=== PATIENT | male | born 1945 | race Caucasian/White ===

== ENCOUNTER 2016-06-22 19:54 | Emergency (ER) | payer MEDICARE, OTHER ==
[~2016-06-22] VITALS: Ht 172.7 cm; Wt 96.6 kg
[~2016-06-22 19:54] MED LIST: ACET325C PO; ALBU2.5V38 IH; BISA10SU8 RC; CRAN405C PO; DEXT1CAP3 PO; ESCI10TA PO; FINA5TAB11 PO; FURO-152 PO; LEVE750T10 PO; LEVO500T15 PO; MAGN400O4 PO; MELA5TAB PO; MEMA10TA PO; MULT-70 PO; OXCA600T PO; POLY255P2 PO; TAMS-3 PO
--- NOTE | 2016-06-22 20:05 | NUR ---
Arrived via [facility] transport from [facility]. Patient brought in for 1 episode of coffee ground emesis. Patient is in bed, no behavioral signs of pain noted. No cardio/respiratory distress noted. Will continue to monitor.
[2016-06-22] MEDS ORDERED: AMIN30LI27 PO (20:09)
[2016-06-22] MEDS ORDERED: FERR-58 PO (20:09)
[2016-06-22] MEDS ORDERED: IV NORMAL SALINE 1000 ML BAG IV ONE (20:15)
[2016-06-22] MEDS ORDERED: ONDANSETRON 4 MG/2 ML VIAL IV ONE (20:15)
[2016-06-22] MEDS ORDERED: PANTOPRAZOLE SODIUM IV 80 MG in IV DEXTROSE 5% 100 ML IV ONE (20:15)
[2016-06-22 20:36] LABS: *OCCULT BLOOD STOOL NEGATIVE (NEGATIVE)
[2016-06-22] MEDS ORDERED: ONDANSETRON 4 MG/2 ML VIAL ONE (20:37)
[2016-06-22] MEDS ORDERED: PANTOPRAZOLE SODIUM 40 MG VIAL ONE (20:38)
[2016-06-22 20:44] LABS: BASOPHILS % (AUTO) 0.5 % (0.0-2.0); EOSINOPHILS # (AUTO) 0.4 K/uL (0.0-0.7); EOSINOPHILS % (AUTO) 4.4 % (0.0-7.0); HEMATOCRIT 37.3 % (40-50); HEMOGLOBIN 12.4 G/DL (14.0-18.0); LYMPHOCYTES # (AUTO) 1.3 K/uL (20.0-40.0); LYMPHOCYTES % (AUTO) 15.4 % (20.5-51.5); MEAN CORPUSCULAR HEMOGLOBIN 25.8 UUG (27.0-31.0); MEAN CORPUSCULAR HGB CONC 33 g/dL (32.0-37.0); MEAN CORPUSCULAR VOLUME 77.5 FL (82.0-92.0); MONOCYTES # (AUTO) 0.6 K/uL (2.0-10.0); MONOCYTES % (AUTO) 7.4 % (0.0-11.0); NEUTROPHILS % (AUTO) 72.3 % (38.5-71.5); PLATELET COUNT (AUTO) 380 K/UL (150-450); RED BLOOD CELL COUNT(AUTO) 4.82 MIL/UL (4.7-6.1); RED CELL DISTRIBUTION WIDTH 30.8 % (11.5-14.5); WHITE BLOOD COUNT (AUTO) 8.3 K/UL (4.0-11.2)
[2016-06-22 20:52] LABS: IRON, SERUM 60 ug/dL (50-175)
[2016-06-22 21:01] LABS: ANISOCYTOSIS 3+; CALCIUM 8.8 mg/dL (8.5-10.1); CARBON DIOXIDE 28 mmol/L (21-32); CHLORIDE 104 mmol/L (98-107); GFR 74 mL/min (>60); GLUCOSE 110 mg/dL (74-106); POTASSIUM 4.2 mmol/L (3.5-5.1); SODIUM SERUM 140 mmol/L (136-145); UREA NITROGEN, BLOOD 18 mg/dL (7-18)
[2016-06-22 21:02] LABS: OVALOCYTES 2+; TEAR DROP CELLS FEW
[2016-06-22 21:07] LABS: ALANINE AMINOTRANSFERASE 22 U/L (16-63); ALBUMIN 3.5 g/dL (3.4-5.0); ALKALINE PHOSPHATASE 120 U/L (50-136); ASPARTATE AMINOTRANSFERASE 12 U/L (15-37); BILIRUBIN,DIRECT < 0.1 mg/dL (0.0-0.2); BILIRUBIN,TOTAL 0.2 mg/dL (0.2-1.0); LIPASE 110 U/L (73-393); TOTAL PROTEIN, SERUM 6.6 g/dL (6.4-8.2)
[2016-06-22 21:08] LABS: AMMONIA 16 umol/L (11-32)
[2016-06-22 21:50] LABS: *BILIRUBIN,URIN NEGATIVE (NEGATIVE); *BLOOD, URINE 2+ (NEGATIVE); *CLARITY,URINE CLOUDY (CLEAR); *COLOR,URINE YELLOW (YELLOW); *KETONES,URINE NEGATIVE (NEGATIVE); *PROTEIN,URINE 2+ (NEGATIVE); *UROBILINOGEN,URINE 0.2 E.U./dl (NORMAL); LEUKOCYTE ESTERASE ,URINE 1+ (NEGATIVE); PH,URINE 6.5 (5.0-8.0); UGLUCOSE NEGATIVE (NEGATIVE)
[2016-06-22 21:51] LABS: NITRITE, URINE POSITIVE (NEGATIVE)
--- NOTE | 2016-06-22 21:53 | NUR ---
[id number],Dr Interiano on phone with Dr Levy. Per Dr Interiano patient is ready to transfer back to SNF. [id number], call placed to [facility]. S ambulance transport eta 30-45 minutes
--- NOTE | 2016-06-22 21:56 | NUR ---
Called Center at [facility] , Report given to Neetu JENNINGS.
[2016-06-22 21:59] LABS: BACTERIA,URINE FEW /HPF (NONE SEEN); MUCUS,URINE FEW /LPF (0-FEW); SQUAMOUS EPITHELIAL CELL,UR NONE SEEN /HPF (NONE SEEN); WBC,URINE 80-100 /HPF (0-3)
--- NOTE | 2016-06-22 22:38 | NUR ---
Patient discharged to snf Center at [facility] in stable conditon. Written and verbal after care instructions given. Patient verbalizes understanding of instructions. All belongings with patient. Transferred via BLS ambulance, chart given to EMT for transport.
[2016-06-22 22:42] VITALS: BP 138/75
== END 2016-06-22 22:43 | disposition home or self-care (01) ==
LOC: ER 19:57
DX: R11.2 Nausea with vomiting, unspecified (principal); G80.9 Cerebral palsy, unspecified; F32.9 Major depressive disorder, single episode, unspecified; I50.9 Heart failure, unspecified
CPT/HCPCS: 36415; 70030-TC; 71010; 83550; 83690; 85025; 85730; 86850; 86900; 86901; 93005; A4663; C9113; J2405; J7030; J7060

== ENCOUNTER 2016-09-04 22:39 | Inpatient (IN) | payer MEDICARE, OTHER ==
[~2016-09-04] VITALS: Ht 177.8 cm; Wt 99.8 kg
[~2016-09-04 22:39] MED LIST changes: +AMIN30LI27 PO; +FERR-58 PO; -LEVO500T15 PO; -MAGN400O4 PO; +MAGN400O6 PO; -MULT-70 PO; +MULT1TAB73 PO
[2016-09-04] MEDS ORDERED: BACL10TA PO (23:12)
[2016-09-04 23:24] LABS: BASOPHILS # (AUTO) 0.1 K/uL (0.0-8.0); BASOPHILS % (AUTO) 0.8 % (0.0-2.0); EOSINOPHILS # (AUTO) 0.1 K/uL (0.0-0.7); EOSINOPHILS % (AUTO) 1.4 % (0.0-7.0); HEMATOCRIT 40.2 % (40-50); HEMOGLOBIN 13.1 G/DL (14.0-18.0); LYMPHOCYTES # (AUTO) 0.6 K/UL (0.8-4.8); LYMPHOCYTES % (AUTO) 6.6 % (20.5-51.5); MEAN CORPUSCULAR HEMOGLOBIN 28.7 UUG (27.0-31.0); MEAN CORPUSCULAR HGB CONC 33 g/dL (32.0-37.0); MEAN CORPUSCULAR VOLUME 87.9 FL (82.0-92.0); MONOCYTES # (AUTO) 0.6 K/UL (0.1-1.30); MONOCYTES % (AUTO) 6.6 % (0.0-11.0); NEUTROPHILS # (AUTO) 8.4 K/UL (1.8-8.9); NEUTROPHILS % (AUTO) 84.6 % (38.5-71.5); PLATELET COUNT (AUTO) 313 K/UL (150-450); RED BLOOD CELL COUNT(AUTO) 4.57 MIL/UL (4.7-6.1); WHITE BLOOD COUNT (AUTO) 9.8 K/UL (4.0-11.2)
[2016-09-04 23:25] LABS: CARBON DIOXIDE 25 mmol/L (21-32); CHLORIDE 101 mmol/L (98-107); GLUCOSE 131 mg/dL (74-106); POTASSIUM 4.2 mmol/L (3.5-5.1); UREA NITROGEN, BLOOD 17 mg/dL (7-18)
--- NOTE | 2016-09-04 23:30 | NUR ---
Pt biba from facility for dark colored emesis. Pt having N/V. Abd non tender upon palpation. Pos BS. Pt hot to touch. Resp even and unlabored. Pt SR on monitor. Lab and xray at bedside.
--- NOTE | 2016-09-04 23:35 | NUR ---
Pt cleansed and changed. Pt cont to feel hot to touch. Rectal temp 101.1. notified.
[2016-09-04 23:37] LABS: ALANINE AMINOTRANSFERASE 23 U/L (16-63); ALKALINE PHOSPHATASE 102 U/L (50-136); ASPARTATE AMINOTRANSFERASE 11 U/L (15-37); BILIRUBIN,DIRECT < 0.1 mg/dL (0.0-0.2); BILIRUBIN,TOTAL 0.1 mg/dL (0.2-1.0); TOTAL PROTEIN, SERUM 6.5 g/dL (6.4-8.2)
[2016-09-05] MEDS ORDERED: ESCI10TA PO (00:06)
[2016-09-05] MEDS ORDERED: IV NORMAL SALINE 1000 ML BAG IV ONE (00:15)
[2016-09-05] MEDS ORDERED: PIPERACILLIN SODIUM/TAZOBACTAM 3.375 G in IV DEXTROSE 5% 50 ML IV ONE (00:15)
[2016-09-05] MEDS ORDERED: GENTAMICIN SULFATE INJ 80 MG in IV DEXTROSE 5% 100 ML IV ONE (00:15)
--- NOTE | 2016-09-05 01:03 | NUR ---
Supra pubic catheter changed by Dr. Soliman. New catheter irrigated and is draining freely to gravity. Fluid bolus infusing freely to gravity. ABT infusion started, will monitor for any adverse reactions. Pt resting in position of comfort for self. Family at bedside.
[2016-09-05] MEDS ORDERED: PIPERACILLIN/TAZOBACTAM/D5W 50 ML IV ONE (01:11)
--- NOTE | 2016-09-05 01:13 | NUR ---
Dr. Soliman speaking with Dr. Duran concerning admission
[2016-09-05] MEDS ORDERED: GENTAMICIN SULFATE 80 MG/2 ML VIAL ONE (01:45)
[2016-09-05 01:59] LABS: *BILIRUBIN,URIN NEGATIVE (NEGATIVE); *BLOOD, URINE 3+ (NEGATIVE); *CLARITY,URINE CLOUDY (CLEAR); *COLOR,URINE YELLOW (YELLOW); *KETONES,URINE NEGATIVE (NEGATIVE); *PROTEIN,URINE 3+ (NEGATIVE); *UROBILINOGEN,URINE 0.2 E.U./dl (NORMAL); LEUKOCYTE ESTERASE ,URINE 2+ (NEGATIVE); NITRITE, URINE NEGATIVE (NEGATIVE); PH,URINE 8.5 (5.0-8.0); UGLUCOSE NEGATIVE (NEGATIVE)
--- NOTE | 2016-09-05 02:00 | NUR ---
Pt to be admitted. Report called to DICK Patel. Preparing to transfer pt to the floor.
[2016-09-05 02:03] LABS: BACTERIA,URINE MODERATE /HPF (NONE SEEN); RBC,URINE TNTC /HPF (0-3); SQUAMOUS EPITHELIAL CELL,UR FEW /HPF (NONE SEEN)
[2016-09-05 02:57] VITALS: BP 147/99
[2016-09-05] MEDS ORDERED: CEFTRIAXONE 1 G VIAL IM SCH (03:15)
[2016-09-05] MEDS: IV NS 1000 ML 1,000 ML IV PRN ×2 (03:31→19:38)
[2016-09-05] MEDS: ACETAMINOPHEN 325 MG TABLET PO PRN (03:31)
[2016-09-05] MEDS ORDERED: ACETAMINOPHEN 325 MG TABLET ONE (03:38)
--- NOTE | 2016-09-05 03:39 | NUR ---
Admitted this 71 y/o male patient via gurney, awake & alert no SOB denies chest pain. Placed on bed comfortably, orientation to room & bed initiated. Initial assessment done, patient is warm to touch w/ Temp 99.8 F orally. Additional 800ml NS bolus (ER order) completed. Tylenol 650 mg po given, cooling measures applied. Fall precaution observed, kept side rails x2 up & secured. Will continue to monitor.
[2016-09-05] MEDS ORDERED: CEFTRIAXONE 1 G VIAL ONE (04:23)
[2016-09-05] MEDS ORDERED: CEFTRIAXONE 1 G VIAL IV SCH (05:00)
--- NOTE | 2016-09-05 06:55 | NUR ---
Afebrile at this time, current temp 98.6 F. Continuos cooling measures applied. No acute resp distress. Will continue to monitor.
--- NOTE | 2016-09-05 07:20 | NUR ---
RECEIVED REPORT FROM PHYSICAL MEDICINE TEACHER NURSE, PATIENT IN BED, AWAKE, NO EVIDENCE OF DISTRESS, BED IN LOW POSITION, SIDE RAILS UP X2.
[2016-09-05] MEDS: Z GUARD REMEDY PASTE 57 GM TUBE TOP SCH ×2 (09:02→20:22)
[2016-09-05] MEDS ORDERED: BISACODYL 10 MG SUPP.RECT RC PRN (09:30)
[2016-09-05] MEDS ORDERED: ALBUTEROL SULFATE 2.5 MG/3 ML NEBU IH PRN (09:30)
[2016-09-05] MEDS ORDERED: Medication Not On Formulary EA (Dextromethorphan Hbr/Quinidine (Nuedexta 20-10 Mg Capsul PO SCH (09:30)
[2016-09-05] MEDS ORDERED: MAGNESIUM HYDROXIDE 30 ML LIQUID UDC PO PRN (09:30)
[2016-09-05] MEDS ORDERED: ACETAMINOPHEN 325 MG TABLET PO PRN (09:30)
[2016-09-05] MEDS: BACLOFEN 10 MG TABLET PO SCH (10:22)
[2016-09-05] MEDS: ESCITALOPRAM OXALATE 10 MG TABLET PO SCH (11:36)
[2016-09-05] MEDS: FINASTERIDE 5 MG TABLET PO SCH (11:36)
[2016-09-05] MEDS: MEMANTINE HCL 10 MG TABLET PO SCH ×2 (11:36→17:41)
[2016-09-05] MEDS: FUROSEMIDE 20 MG TABLET PO SCH ×2 (11:36→17:41)
[2016-09-05] MEDS: LEVETIRACETAM 250 MG TABLET PO SCH ×2 (11:36→20:21)
[2016-09-05] MEDS: OXCARBAZEPINE 300 MG TABLET PO SCH ×2 (11:36→20:21)
[2016-09-05] MEDS: FERROUS SULFATE 325 MG TABEC PO SCH ×3 (11:37→17:41)
[2016-09-05] MEDS: MULTIVITAMINS,THERAPEUTIC TABLET PO SCH (11:37)
[2016-09-05 12:01] VITALS: BP 144/87
[2016-09-05 16:12] VITALS: BP 145/87
[2016-09-05] MEDS ORDERED: Medication Not On Formulary EA (Cranberry Extract (Cranberry) 450 MG) PO SCH (17:00)
[2016-09-05] MEDS: PROTEIN SUPPLEMENT (PROSTAT) 30 ML LIQUID PO SCH (17:41)
--- NOTE | 2016-09-05 19:11 | NUR ---
PATIENT HAS BEEN COOPERATIVE, WITH INTERMITTENT EPISODES OF ANXIETY WHEN HE WAS BEING REPOSITIONED. SUPPORTIVE WORDS AND REINFORCEMENT HELP CALM HIM DOWN. PATIENT HAS A GOOD APPETITE, AND SHOWS NO EVIDENCE OF DISTRESS EXCEPT WHEN REPOSITIONING AND CHANGING. WOUNDS DOCUMENTED IN CHART AND CONSULT FOR WOUND CARE ORDERED. PATIENT IS IN BED, SIDE RAILS UP X2, BED IN LOW POSITION, NO EVIDENCE OF DISTRESS NOTED.
--- NOTE | 2016-09-05 19:40 | NUR ---
Received patient awake, pleasantly confused verbally responsive. No SOB denies chest pain. Wet hospital gown noted. IV line out, patient still holding dripping IV tubing. Sponge bath provided, complete linen change done. Inserted new IV line to his left hand, A20g. IVF maintained. Kept comfortable. Safety & fall precaution observed.
[2016-09-05 20:00] VITALS: BP 130/89
[2016-09-05] MEDS: TAMSULOSIN HCL 0.4 MG CAP.SR.24H PO SCH (20:20)
[2016-09-05] MEDS: MELATONIN 3 MG TABLET PO SCH (20:22)
[2016-09-05] MEDS ORDERED: Medication Not On Formulary EA (Melatonin 5 MG) PO SCH (21:00)
--- NOTE | 2016-09-05 22:00 | NUR ---
Repositioned in bed. Patient tolerated night p.o meds.
--- NOTE | 2016-09-05 23:00 | NUR ---
Sleeping comfortably no signs of distress.
[2016-09-06] MEDS ORDERED: CEFTRIAXONE 1 G VIAL IV SCH (03:15)
[2016-09-06 04:00] VITALS: BP 115/66
--- NOTE | 2016-09-06 05:59 | NUR ---
Total care, very difficult to turn due to heavy weight. Left hand IV infiltrated, & removed. Inserted new heplock to his right forearm, w/ [id number]. IVF maintained.
[2016-09-06] MEDS: CEFTRIAXONE 1 G in IV DEXTROSE 5% 50 ML IV SCH (06:04)
--- NOTE | 2016-09-06 07:15 | NUR ---
RECEIVED REPORT FROM RESEARCH QUALITY ASSURANCE SPECIALIST, PATIENT IN BED, ASLEEP, SIDE RAILS UP X2, BED IN LOW POSITION, BED ALARM SET.
--- NOTE | 2016-09-06 07:15 | NUR ---
For EGD today, kept NPO post midnight. No acute res. distress.
[2016-09-06] MEDS: PROTEIN SUPPLEMENT (PROSTAT) 30 ML LIQUID PO SCH ×2 (08:00→17:18)
[2016-09-06] MEDS: MULTIVITAMINS,THERAPEUTIC TABLET PO SCH (09:00)
[2016-09-06] MEDS: FERROUS SULFATE 325 MG TABEC PO SCH ×3 (09:00→17:18)
[2016-09-06] MEDS: Z GUARD REMEDY PASTE 57 GM TUBE TOP SCH ×2 (09:00→21:00)
[2016-09-06 09:09] LABS: BASOPHILS % (AUTO) 0.6 % (0.0-2.0); EOSINOPHILS # (AUTO) 0.2 K/uL (0.0-0.7); EOSINOPHILS % (AUTO) 5.1 % (0.0-7.0); HEMATOCRIT 36.5 % (40-50); HEMOGLOBIN 12.2 G/DL (14.0-18.0); LYMPHOCYTES # (AUTO) 1.1 K/UL (0.8-4.8); LYMPHOCYTES % (AUTO) 23.1 % (20.5-51.5); MEAN CORPUSCULAR HEMOGLOBIN 29.9 UUG (27.0-31.0); MEAN CORPUSCULAR HGB CONC 34 g/dL (32.0-37.0); MEAN CORPUSCULAR VOLUME 89.1 FL (82.0-92.0); MONOCYTES # (AUTO) 0.7 K/UL (0.1-1.30); MONOCYTES % (AUTO) 15.2 % (0.0-11.0); NEUTROPHILS # (AUTO) 2.8 K/UL (1.8-8.9); PLATELET COUNT (AUTO) 276 K/UL (150-450)
[2016-09-06 09:39] LABS: RED BLOOD CELL COUNT(AUTO) 4.09 MIL/UL (4.7-6.1); WHITE BLOOD COUNT (AUTO) 4.9 K/UL (4.0-11.2)
[2016-09-06 10:08] LABS: BILIRUBIN,TOTAL 0.2 mg/dL (0.2-1.0); CREATININE 0.9 mg/dL (0.6-1.3); MAGNESIUM 2.1 mg/dL (1.8-2.4); TOTAL PROTEIN, SERUM 5.9 g/dL (6.4-8.2)
[2016-09-06] MEDS: LEVETIRACETAM 250 MG TABLET PO SCH ×2 (10:21→20:59)
[2016-09-06] MEDS: MEMANTINE HCL 10 MG TABLET PO SCH ×2 (10:21→17:18)
[2016-09-06] MEDS: OXCARBAZEPINE 300 MG TABLET PO SCH ×2 (10:21→20:59)
[2016-09-06] MEDS: BACLOFEN 10 MG TABLET PO SCH (10:22)
[2016-09-06] MEDS: ESCITALOPRAM OXALATE 10 MG TABLET PO SCH (10:22)
[2016-09-06] MEDS: FUROSEMIDE 20 MG TABLET PO SCH ×2 (10:22→17:18)
[2016-09-06] MEDS: FINASTERIDE 5 MG TABLET PO SCH (10:23)
[2016-09-06 10:28] LABS: BAND % (MANUAL) 1 % (0-10); BASOPHILS % (MANUAL) 2 % (0-2); EOSINOPHILS % (MANUAL) 4 % (0-8); LYMPHOCYTES % (MANUAL) 27 % (20-40); MONOCYTES % (MANUAL) 18 % (2-10); NEUTROPHILS % (MANUAL) 48 % (42-75)
[2016-09-06 11:17] VITALS: BP 113/70
[2016-09-06] MEDS: IV NS 1000 ML 1,000 ML IV PRN (11:43)
[2016-09-06] MEDS ORDERED: IV NORMAL SALINE 1000 ML BAG IV ONE (11:54)
[2016-09-06] MEDS ORDERED: PROPOFOL 200 MG/20 ML BOTTLE IV ONE (11:54)
[2016-09-06] MEDS ORDERED: LIDOCAINE HCL 2% 20 ML VIAL MC ONE (11:54)
[2016-09-06] MEDS ORDERED: KETAMINE HCL 500 MG/10 ML INJ ONE (14:58)
[2016-09-06 16:42] VITALS: BP 121/71
--- NOTE | 2016-09-06 19:18 | NUR ---
Patient had EGD procedure this afternoon and no evidence of distress noted on return from recovery. patient tolerated a clear liquid diet and can be advanced to full liquids tomorrow morning. Patient is in bed, side rails up x2, bed in low position.
[2016-09-06 20:00] VITALS: BP 128/77
[2016-09-06] MEDS: ACETAMINOPHEN 325 MG TABLET PO PRN (20:59)
[2016-09-06] MEDS: TAMSULOSIN HCL 0.4 MG CAP.SR.24H PO SCH (20:59)
[2016-09-06] MEDS: MELATONIN 3 MG TABLET PO SCH (21:00)
[2016-09-07] MEDS: IV NS 1000 ML 1,000 ML IV PRN (01:36)
[2016-09-07 05:00] VITALS: BP 134/84
[2016-09-07] MEDS: CEFTRIAXONE 1 G in IV DEXTROSE 5% 50 ML IV SCH (05:51)
--- NOTE | 2016-09-07 06:00 | NUR ---
Patient rested well, repositioned & kept comfortable. Had large amount of soft formed stool today, incontinence care & sponge bath provided. Suprapubic catheter care done. Afebrile, vital signs are stable. No acute resp distress.
[2016-09-07 06:28] LABS: BILIRUBIN,TOTAL 0.2 mg/dL (0.2-1.0); CREATININE 0.7 mg/dL (0.6-1.3); MAGNESIUM 1.9 mg/dL (1.8-2.4); POTASSIUM 3.4 mmol/L (3.5-5.1); TOTAL PROTEIN, SERUM 5.9 g/dL (6.4-8.2)
[2016-09-07 06:38] LABS: BASOPHILS % (AUTO) 0.5 % (0.0-2.0); EOSINOPHILS # (AUTO) 0.4 K/uL (0.0-0.7); EOSINOPHILS % (AUTO) 8.8 % (0.0-7.0); HEMATOCRIT 36.7 % (40-50); HEMOGLOBIN 12.4 G/DL (14.0-18.0); LYMPHOCYTES % (AUTO) 22.5 % (20.5-51.5); MEAN CORPUSCULAR HGB CONC 34 g/dL (32.0-37.0); MONOCYTES # (AUTO) 0.6 K/UL (0.1-1.30); MONOCYTES % (AUTO) 13.3 % (0.0-11.0); NEUTROPHILS # (AUTO) 2.6 K/UL (1.8-8.9); NEUTROPHILS % (AUTO) 54.9 % (38.5-71.5); PLATELET COUNT (AUTO) 269 K/UL (150-450); RED BLOOD CELL COUNT(AUTO) 4.12 MIL/UL (4.7-6.1); WHITE BLOOD COUNT (AUTO) 4.6 K/UL (4.0-11.2)
--- NOTE | 2016-09-07 08:00 | NUR ---
RESTING WITH EYES CLOSED NO SIGNS OF PAIN OR DISTRESS. TOTAL ASSIST IN ALL AREAS OF ADLS BEDBOUND AND VERY CONTRACTED. GOOD SKIN CARE MAINTAINED
[2016-09-07] MEDS: FERROUS SULFATE 325 MG TABEC PO SCH ×3 (08:31→17:34)
[2016-09-07] MEDS: BACLOFEN 10 MG TABLET PO SCH (08:31)
[2016-09-07] MEDS: FINASTERIDE 5 MG TABLET PO SCH (08:31)
[2016-09-07] MEDS: ESCITALOPRAM OXALATE 10 MG TABLET PO SCH (08:31)
[2016-09-07] MEDS: FUROSEMIDE 20 MG TABLET PO SCH ×2 (08:31→17:34)
[2016-09-07] MEDS: OXCARBAZEPINE 300 MG TABLET PO SCH ×2 (08:31→20:45)
[2016-09-07] MEDS: MULTIVITAMINS,THERAPEUTIC TABLET PO SCH (08:31)
[2016-09-07] MEDS: MEMANTINE HCL 10 MG TABLET PO SCH ×2 (08:31→17:34)
[2016-09-07] MEDS: LEVETIRACETAM 250 MG TABLET PO SCH ×2 (08:32→20:45)
[2016-09-07] MEDS: PROTEIN SUPPLEMENT (PROSTAT) 30 ML LIQUID PO SCH ×2 (08:35→17:35)
[2016-09-07] MEDS: Z GUARD REMEDY PASTE 57 GM TUBE TOP SCH ×2 (08:36→20:45)
[2016-09-07] MEDS ORDERED: POTASSIUM CHLORIDE 20 MEQ TAB.PRT.SR PO ONE (10:15)
--- NOTE | 2016-09-07 11:00 | NUR ---
SEEN BY GI SAID TO CONTINUE DIET TOLERATED
[2016-09-07 11:58] VITALS: BP 102/58
--- NOTE | 2016-09-07 14:47 | NUR ---
TOLERATING DIET NO SWALLOWING DIFFICULTY
[2016-09-07 16:12] VITALS: BP 111/61
--- NOTE | 2016-09-07 18:37 | NUR ---
NO ACUTE CHANGE
[2016-09-07 20:00] VITALS: BP 143/73
[2016-09-07] MEDS: TAMSULOSIN HCL 0.4 MG CAP.SR.24H PO SCH (20:44)
[2016-09-07] MEDS: ACETAMINOPHEN 325 MG TABLET PO PRN (20:45)
[2016-09-07] MEDS: MELATONIN 3 MG TABLET PO SCH (20:45)
[2016-09-08 04:00] VITALS: BP 128/70
[2016-09-08] MEDS: CEFTRIAXONE 1 G in IV DEXTROSE 5% 50 ML IV SCH (05:16)
[2016-09-08 06:32] LABS: CREATININE 0.9 mg/dL (0.6-1.3); POTASSIUM 3.5 mmol/L (3.5-5.1)
--- NOTE | 2016-09-08 06:55 | NUR ---
No significant change, afebrile. Had large soft BM today, sponge bath provided. No acute resp distress.
--- NOTE | 2016-09-08 08:05 | NUR ---
RESTING COMFORTABLY IN BED ALERT AND RESPOND APPROPRIATELY. NO SIGNS OF PAIN OR DISTRESS
[2016-09-08] MEDS: BACLOFEN 10 MG TABLET PO SCH (08:26)
[2016-09-08] MEDS: LEVETIRACETAM 250 MG TABLET PO SCH (08:26)
[2016-09-08] MEDS: MEMANTINE HCL 10 MG TABLET PO SCH (08:26)
[2016-09-08] MEDS: OXCARBAZEPINE 300 MG TABLET PO SCH (08:26)
[2016-09-08] MEDS: FINASTERIDE 5 MG TABLET PO SCH (08:27)
[2016-09-08] MEDS: FERROUS SULFATE 325 MG TABEC PO SCH (08:27)
[2016-09-08] MEDS: MULTIVITAMINS,THERAPEUTIC TABLET PO SCH (08:27)
[2016-09-08] MEDS: FUROSEMIDE 20 MG TABLET PO SCH (08:27)
[2016-09-08] MEDS: ESCITALOPRAM OXALATE 10 MG TABLET PO SCH (08:27)
[2016-09-08] MEDS: PROTEIN SUPPLEMENT (PROSTAT) 30 ML LIQUID PO SCH (08:29)
[2016-09-08] MEDS: Z GUARD REMEDY PASTE 57 GM TUBE TOP SCH (08:32)
--- NOTE | 2016-09-08 08:58 | NUR ---
SEEN BY DR PORTILLO WITH DC ORDER BACK TO SNF
--- NOTE | 2016-09-08 11:11 | NUR ---
The patient will be discharged today back to [facility] [ ; [address] [place] [address]] via [facility]. Spoke to his sister, Kenyetta [ ], and she was in agreement with his discharge. Also spoke to Jumana from [facility] and she confirmed that they will re-admit the patient today. His RN, Radha, is aware of his discharge plan and will call the facility for the report.
[2016-09-08 11:42] VITALS: BP 118/70
--- NOTE | 2016-09-08 11:58 | NUR ---
discharged to [facility] stable via ambulance with family at bedside
== END 2016-09-08 11:55 | DRG 377 ==
LOC: ER 22:42 → MED 09-05 02:07
PROVIDERS: ADMIT Internal Medicine Nephrology; ATTEND Internal Medicine
PROC: 0DB68ZX Excision of Stomach, Via Natural or Artificial Opening Endoscopic, Diagnostic (ICD-10-PCS; 2016-09-06)
PROC: 0DB58ZX Excision of Esophagus, Via Natural or Artificial Opening Endoscopic, Diagnostic (ICD-10-PCS; principal; 2016-09-06 15:30)
DX: K29.01 Acute gastritis with bleeding (principal); I50.43 Acute on chronic combined systolic (congestive) and diastolic (congestive) heart failure; N39.0 Urinary tract infection, site not specified; K22.6 Gastro-esophageal laceration-hemorrhage syndrome; K22.70 Barrett's esophagus without dysplasia; G40.909 Epilepsy, unspecified, not intractable, without status epilepticus; G80.9 Cerebral palsy, unspecified; N40.0 Benign prostatic hyperplasia without lower urinary tract symptoms; M24.50 Contracture, unspecified joint; K44.9 Diaphragmatic hernia without obstruction or gangrene
CPT/HCPCS: 36415; 70030-TC; 71010; 83605; 83735; 84100; 85025; 85730; 87040; 87077; 87086; 93005; 97161; A4217; J0696; J1580; J2543; J3490; J7030; J7060

== ENCOUNTER 2017-01-20 13:49 | Inpatient (IN) | payer MEDICARE, OTHER ==
[~2017-01-20] VITALS: Ht 172.7 cm; Wt 100.2 kg
[~2017-01-20 13:49] MED LIST changes: +BACL10TA PO; -POLY255P2 PO
[2017-01-20] MEDS ORDERED: ONDANSETRON IV *ER 4 MG/2 ML VIAL IV ONE (14:43)
[2017-01-20] MEDS ORDERED: PANTOPRAZOLE SODIUM IV 40 MG in IV DEXTROSE 5% 100 ML IV ONE ×2 (14:43→17:49)
[2017-01-20] MEDS ORDERED: IV NORMAL SALINE 500 ML IV ONE (14:45)
--- NOTE | 2017-01-20 15:06 | NUR ---
71 years old male biba from half-way report vomiting coffee grind.vital stable will continue to monitor.
[2017-01-20] MEDS ORDERED: ESCI5TAB PO (15:34)
[2017-01-20 15:55] LABS: BASOPHILS % (AUTO) 0.1 % (0.0-2.0); EOSINOPHILS # (AUTO) 0.4 K/uL (0.0-0.7); EOSINOPHILS % (AUTO) 4.4 % (0.0-7.0); HEMATOCRIT 29.5 % (40-50); HEMOGLOBIN 9.5 G/DL (14.0-18.0); LYMPHOCYTES % (AUTO) 11.8 % (20.5-51.5); MEAN CORPUSCULAR HEMOGLOBIN 25.9 UUG (27.0-31.0); MEAN CORPUSCULAR HGB CONC 32 g/dL (32.0-37.0); MONOCYTES # (AUTO) 0.6 K/UL (0.1-1.30); MONOCYTES % (AUTO) 6.5 % (0.0-11.0); NEUTROPHILS # (AUTO) 6.6 K/UL (1.8-8.9); NEUTROPHILS % (AUTO) 77.2 % (38.5-71.5); PLATELET COUNT (AUTO) 397 K/UL (150-450); RED BLOOD CELL COUNT(AUTO) 3.68 MIL/UL (4.7-6.1); WHITE BLOOD COUNT (AUTO) 8.6 K/UL (4.0-11.2)
[2017-01-20 15:59] LABS: CREATININE 0.7 mg/dL (0.6-1.3); POTASSIUM 4.1 mmol/L (3.5-5.1)
[2017-01-20 16:05] LABS: BILIRUBIN,TOTAL 0.2 mg/dL (0.2-1.0); TOTAL PROTEIN, SERUM 6.1 g/dL (6.4-8.2)
[2017-01-20 16:07] LABS: *BILIRUBIN,URIN NEGATIVE (NEGATIVE); *BLOOD, URINE Trace-lysed (NEGATIVE); *CLARITY,URINE CLOUDY (CLEAR); *COLOR,URINE YELLOW (YELLOW); *KETONES,URINE 1+ (NEGATIVE); *PROTEIN,URINE 2+ (NEGATIVE); *UROBILINOGEN,URINE 0.2 E.U./dl (NORMAL); LEUKOCYTE ESTERASE ,URINE 2+ (NEGATIVE); NITRITE, URINE NEGATIVE (NEGATIVE); UGLUCOSE NEGATIVE (NEGATIVE)
[2017-01-20] MEDS ORDERED: PANTOPRAZOLE SODIUM 40 MG VIAL ONE ×3 (16:20→21:11)
[2017-01-20] MEDS ORDERED: ONDANSETRON 4 MG/2 ML VIAL ONE (16:20)
[2017-01-20 16:24] LABS: BACTERIA,URINE FEW /HPF (NONE SEEN); RBC,URINE 0-3 /HPF (0-3); SQUAMOUS EPITHELIAL CELL,UR FEW /HPF (NONE SEEN); WBC,URINE 20-50 /HPF (0-3)
[2017-01-20 16:27] LABS: URINE AMORPHOUS PHOSPHATES MODERATE /HPF
[2017-01-20] MEDS ORDERED: CEFTRIAXONE 1 G in IV DEXTROSE 5% 50 ML IV ONE (17:43)
--- NOTE | 2017-01-20 17:50 | NUR ---
ASSISSTED FOR RECTAL EXAM, STOOL COLLECTED BY . SENT TO LAB.
[2017-01-20] MEDS ORDERED: HYDROCODONE/APAP 5-325MG TABLET PO PRN (18:15)
[2017-01-20] MEDS ORDERED: Z GUARD REMEDY PASTE 57 GM TUBE TOP PRN (18:15)
[2017-01-20] MEDS ORDERED: MAGNESIUM HYDROXIDE 30 ML LIQUID UDC PO PRN (18:15)
[2017-01-20] MEDS ORDERED: ONDANSETRON 4 MG/2 ML VIAL IV PRN (18:15)
[2017-01-20] MEDS ORDERED: HYDROMORPHONE 1 MG/1 ML DISP.SYRIN IV PRN (18:15)
[2017-01-20] MEDS ORDERED: CEFTRIAXONE 1 G VIAL ONE (18:17)
--- NOTE | 2017-01-20 18:42 | NUR ---
pt assigned to room 208, no nurse assigned will bring pt after shift. no acute changes, skin intact will continue to monitor.
[2017-01-20] MEDS ORDERED: BISACODYL 10 MG SUPP.RECT RC PRN (18:45)
[2017-01-20 18:59] LABS: *OCCULT BLOOD STOOL POSITIVE (NEGATIVE)
--- NOTE | 2017-01-20 19:53 | NUR ---
Transfered to 2nd floor via [facility]
[2017-01-20 20:00] VITALS: BP 129/76
--- NOTE | 2017-01-20 20:00 | NUR ---
NSG: pt received a/o x 1, fr er via gurney with dx of uti and gi bleed. tele, SR. denies discomfort. BUE/BLE contracted. has suprapubic catheter, draining cloudy urine with sediments. sister at the bedside.
[2017-01-20] MEDS ORDERED: Medication Not On Formulary EA (Melatonin 5 MG) PO SCH (21:00)
[2017-01-20] MEDS: IV NS 1000 ML 1,000 ML IV PRN (21:05)
[2017-01-20] MEDS: TAMSULOSIN HCL 0.4 MG CAP.SR.24H PO SCH (21:07)
[2017-01-20] MEDS ORDERED: HYDROMORPHONE 4 MG/1 ML DISP.SYRIN IV PRN (21:15)
[2017-01-20] MEDS: PANTOPRAZOLE SODIUM 40 MG VIAL IV SCH (21:22)
[2017-01-20] MEDS: OXCARBAZEPINE 300 MG TABLET PO SCH (21:30)
[2017-01-20] MEDS: LEVETIRACETAM 500 MG TABLET PO SCH (21:30)
[2017-01-20] MEDS ORDERED: OXCARBAZEPINE 300 MG TABLET ONE (21:42)
[2017-01-20] MEDS ORDERED: LEVETIRACETAM 250 MG TABLET ONE (21:43)
[2017-01-20] MEDS ORDERED: LEVETIRACETAM 500 MG TABLET ONE (21:44)
[2017-01-20] MEDS: MEROPENEM 0.5 G in IV NORMAL SALINE 50 ML IV SCH (22:21)
--- NOTE | 2017-01-21 00:30 | NUR ---
nsg: no acute distress noted. cont to monitor. comfortable sleeping.
[2017-01-21 01:34] VITALS: BP 96/54
[2017-01-21 04:00] VITALS: BP 92/48
--- NOTE | 2017-01-21 05:28 | NUR ---
nsg: bp low sbp 92. asymptomatic. will cont to monitor.
[2017-01-21] MEDS: MEROPENEM 0.5 G in IV NORMAL SALINE 50 ML IV SCH ×3 (06:10→21:39)
[2017-01-21 06:54] LABS: BASOPHILS % (AUTO) 0.3 % (0.0-2.0); EOSINOPHILS # (AUTO) 0.4 K/uL (0.0-0.7); EOSINOPHILS % (AUTO) 9.5 % (0.0-7.0); HEMATOCRIT 24.9 % (36.7-47.1); HEMOGLOBIN 7.9 g/dL (12.5-16.3); LYMPHOCYTES # (AUTO) 0.7 K/uL (20.0-40.0); LYMPHOCYTES % (AUTO) 17.9 % (20.5-51.5); MEAN CORPUSCULAR HEMOGLOBIN 25.9 uug (23.8-33.4); MEAN CORPUSCULAR HGB CONC 32 g/dL (32.5-36.3); MEAN CORPUSCULAR VOLUME 81.3 fL (73.0-96.2); MONOCYTES # (AUTO) 0.5 K/uL (2.0-10.0); MONOCYTES % (AUTO) 11.9 % (0.0-11.0); NEUTROPHILS # (AUTO) 2.5 K/uL (1.8-8.9); NEUTROPHILS % (AUTO) 60.4 % (38.5-71.5); PLATELET COUNT (AUTO) 292 K/uL (152-348); RED BLOOD CELL COUNT(AUTO) 3.06 MIL/uL (4.06-5.63); WHITE BLOOD COUNT (AUTO) 4.1 K/uL (3.6-10.2)
[2017-01-21 07:24] LABS: THYROID STIMULATING HORMONE 1.181 mIU/mL (0.358-3.740)
--- NOTE | 2017-01-21 07:30 | NUR ---
Received patient on bed, A and O x 1, peripheral IV NS on the right wrist #20 intact and patent. with suprapubic catheter draining cloudy urine with sediments, intact. No acute distress noted. No vomiting episodes at this time. Comfort measures provided. Call light within reach. Sister at bedside
[2017-01-21 07:41] LABS: CREATININE 0.7 mg/dL (0.6-1.3); MAGNESIUM 2.1 mg/dL (1.8-2.4); PHOSPHOROUS 4.3 mg/dL (2.5-4.9)
[2017-01-21] MEDS: IV NS 1000 ML 1,000 ML IV PRN ×2 (07:59→21:39)
[2017-01-21] MEDS ORDERED: Medication Not On Formulary EA (Amino Acids/Protein Hydrolys (Pro-Stat Sugar Free Liquid PO SCH (09:00)
[2017-01-21] MEDS: PROTEIN SUPPLEMENT (PROSTAT) 30 ML LIQUID PO SCH ×2 (09:00→17:37)
[2017-01-21] MEDS ORDERED: Medication Not On Formulary EA (Escitalopram Oxalate (Lexapro) 5 MG) PO SCH (09:00)
[2017-01-21] MEDS ORDERED: Medication Not On Formulary EA (Cranberry Extract (Cranberry) 450 MG) PO SCH (09:00)
[2017-01-21] MEDS ORDERED: Medication Not On Formulary EA (Multivitamins (Multivitamin) 1 EACH) PO SCH (09:00)
[2017-01-21] MEDS: MEMANTINE HCL 10 MG TABLET PO SCH ×2 (09:12→17:37)
[2017-01-21] MEDS: MULTIVITAMINS,THERAPEUTIC TABLET PO SCH (09:13)
[2017-01-21] MEDS: FINASTERIDE 5 MG TABLET PO SCH (09:13)
[2017-01-21] MEDS: LEVETIRACETAM 500 MG TABLET PO SCH ×2 (09:13→21:36)
[2017-01-21] MEDS: BACLOFEN 10 MG TABLET PO SCH (09:13)
[2017-01-21] MEDS: ESCITALOPRAM OXALATE 10 MG TABLET PO SCH (09:14)
[2017-01-21] MEDS: PANTOPRAZOLE SODIUM 40 MG VIAL IV SCH ×2 (09:14→21:40)
[2017-01-21] MEDS: OXCARBAZEPINE 300 MG TABLET PO SCH ×2 (09:46→21:36)
--- NOTE | 2017-01-21 10:00 | NUR ---
Seen and examined by Dr. Amaro, ordered consent for EGD and colonoscopy for tomorrow at 9am, colon prep, clear liquid diet, and NPO after midnight. Orders carried out. Dr. Amaro spoke to pt's sister about pt's condition and procedure tomorrow, pt's sister verbalized understanding.
[2017-01-21] MEDS ORDERED: BISACODYL 5 MG TABLET.DR PO ONE (10:30)
[2017-01-21 11:54] VITALS: BP 90/57
[2017-01-21] MEDS: FERROUS SULFATE 325 MG TABEC PO SCH (13:16)
[2017-01-21] MEDS ORDERED: GOLYTELY 4000 ML BOTTLE PO ONE (15:00)
[2017-01-21] MEDS: ACETAMINOPHEN 325 MG TABLET PO PRN (15:32)
--- NOTE | 2017-01-21 15:45 | NUR ---
NOTED WITH ELEVATED TEMPERATURE OF 100.2F, GAVE TYLENOL 650 MG PRN.
[2017-01-21 15:49] VITALS: BP 110/70
[2017-01-21] MEDS ORDERED: CEFTRIAXONE 1 G in IV DEXTROSE 5% 50 ML IV SCH (18:00)
--- NOTE | 2017-01-21 18:37 | NUR ---
BM X 2, LARGE NOTED
--- NOTE | 2017-01-21 20:00 | NUR ---
Received pt alert, responsive. Pt is aware of EGD/colonoscopy procedure tomorrow morning scheduled at 0930. Golytely 2000ml (half empty). Instructed patient to complete/drink prep. Pt verbalized understanding. Will continue plan of care. Bed alarm on.
[2017-01-21 20:18] VITALS: BP 110/69
[2017-01-21] MEDS: TAMSULOSIN HCL 0.4 MG CAP.SR.24H PO SCH (21:36)
[2017-01-21] MEDS: MELATONIN 3 MG TABLET PO SCH (21:39)
--- NOTE | 2017-01-22 | NUR ---
Patient completed golytely prep with 500ml remaining on the bottle. Patient tolerated well, no nausea, vomiting. Patient placed NPO post midnight. Patient is on tele sinus rhythm 70s, no sob, chest pain or discomfort. Patient kept clean/dry, repositioned for comfort. Will continue to monitor.
[2017-01-22 00:30] VITALS: BP 98/53
[2017-01-22 04:00] VITALS: BP 96/62
[2017-01-22] MEDS: MEROPENEM 0.5 G in IV NORMAL SALINE 50 ML IV SCH ×3 (05:04→21:19)
--- NOTE | 2017-01-22 06:00 | NUR ---
Patient slept intermittently, in no acute distress. Pt is on tele sinus rhythm, VS stable, afebrile. Patient kept NPO for GI procedure scheduled at 0930 today. Patient no s/s of nausea/vomiting. Bowel stool is clear, no sediments/particles of stool noted. Enema done as ordered. Patient tolerated procedure well. Suprapubic romero cath intact, draining yellow, clear urine, no s/s of urinary discomfort. IVF running, no infiltration noted. Bed alarm on, will continue to monitor and endorse to the day shift RN. Addendum: 01/22/17 at 0705 by RALPH GREENBERG RN Add: Preop checklist done.
[2017-01-22] MEDS ORDERED: PROPOFOL 200 MG/20 ML BOTTLE IV ONE (07:08)
[2017-01-22] MEDS ORDERED: IV NORMAL SALINE 1000 ML BAG IV ONE (07:08)
[2017-01-22] MEDS ORDERED: LIDOCAINE HCL 1% 20 ML VIAL MC ONE (07:08)
--- NOTE | 2017-01-22 08:00 | NUR ---
awake, oriented to self only, kept npo for egd/colonoscopy today, consent signed by sister Kenyetta yesterday, on room air, no shortness of breath noted, head of bed elevated, lower extremities contracted, suprapubic cath in place- draining cloudy with sediments urine, repositioned and made comfortable. Sister here at bedside
[2017-01-22 08:06] VITALS: BP 106/56
[2017-01-22] MEDS: PANTOPRAZOLE SODIUM 40 MG VIAL IV SCH ×2 (08:12→20:44)
[2017-01-22 08:31] LABS: BASOPHILS % (AUTO) 0.6 % (0.0-2.0); EOSINOPHILS # (AUTO) 0.4 K/uL (0.0-0.7); EOSINOPHILS % (AUTO) 10.2 % (0.0-7.0); HEMATOCRIT 26.8 % (36.7-47.1); HEMOGLOBIN 8.6 g/dL (12.5-16.3); LYMPHOCYTES # (AUTO) 0.7 K/uL (20.0-40.0); LYMPHOCYTES % (AUTO) 20.6 % (20.5-51.5); MEAN CORPUSCULAR HEMOGLOBIN 25.7 uug (23.8-33.4); MEAN CORPUSCULAR HGB CONC 32 g/dL (32.5-36.3); MEAN CORPUSCULAR VOLUME 80.4 fL (73.0-96.2); MONOCYTES # (AUTO) 0.5 K/uL (2.0-10.0); MONOCYTES % (AUTO) 13.6 % (0.0-11.0); PLATELET COUNT (AUTO) 314 K/uL (152-348); RED BLOOD CELL COUNT(AUTO) 3.34 MIL/uL (4.06-5.63); WHITE BLOOD COUNT (AUTO) 3.6 K/uL (3.6-10.2)
[2017-01-22] MEDS: MULTIVITAMINS,THERAPEUTIC TABLET PO SCH ×2 (09:00→14:46)
[2017-01-22] MEDS: ESCITALOPRAM OXALATE 10 MG TABLET PO SCH ×2 (09:00→14:45)
[2017-01-22] MEDS: PROTEIN SUPPLEMENT (PROSTAT) 30 ML LIQUID PO SCH ×2 (09:00→16:52)
[2017-01-22] MEDS: FINASTERIDE 5 MG TABLET PO SCH ×2 (09:00→14:47)
[2017-01-22] MEDS: MEMANTINE HCL 10 MG TABLET PO SCH ×2 (09:00→16:51)
[2017-01-22] MEDS: OXCARBAZEPINE 300 MG TABLET PO SCH ×3 (09:00→22:56)
[2017-01-22] MEDS: LEVETIRACETAM 500 MG TABLET PO SCH ×3 (09:00→20:44)
[2017-01-22] MEDS: FERROUS SULFATE 325 MG TABEC PO SCH ×2 (09:00→14:45)
[2017-01-22] MEDS: BACLOFEN 10 MG TABLET PO SCH ×2 (09:00→14:46)
[2017-01-22 09:33] LABS: BILIRUBIN,TOTAL 0.2 mg/dL (0.2-1.0); CREATININE 0.7 mg/dL (0.6-1.3); PHOSPHOROUS 3.3 mg/dL (2.5-4.9); POTASSIUM 3.8 mmol/L (3.5-5.1); TOTAL PROTEIN, SERUM 5.5 g/dL (6.4-8.2)
--- NOTE | 2017-01-22 10:10 | NUR ---
To GI lab per bed, Kenyetta (sister) went with pt
--- NOTE | 2017-01-22 12:00 | NUR ---
back from recovery room, awake, alert, oriented to self, sister at bedside, vs taken, no bleeding noted, explained plan fo care to family- verbalized understanding, will monitor closely
[2017-01-22 12:05] VITALS: BP 102/67
[2017-01-22] MEDS: IV NS 1000 ML 1,000 ML IV PRN (13:23)
--- NOTE | 2017-01-22 14:00 | NUR ---
tolerated clear liquid well, no n/v, aspiration precaution observed
[2017-01-22 15:26] VITALS: BP 113/59
--- NOTE | 2017-01-22 18:25 | NUR ---
fed with regular mechanical soft diet- tolerated well, aspiration precautions observed, all needs attended and met, safety measures maintained
[2017-01-22] MEDS: ACETAMINOPHEN 325 MG TABLET PO PRN (18:32)
[2017-01-22 20:08] VITALS: BP 110/61
[2017-01-22] MEDS: TAMSULOSIN HCL 0.4 MG CAP.SR.24H PO SCH (20:43)
[2017-01-22] MEDS: MELATONIN 3 MG TABLET PO SCH (20:45)
--- NOTE | 2017-01-22 22:56 | NUR ---
Administered Trileptal schedule time 2099. Delay due to delay in day time 0900 schedule. Charted as unscheduled administration due to 2099 slot taken intended for 09 slot. Tabitha, pharmacy aware.
[2017-01-23] MEDS: IV NS 1000 ML 1,000 ML IV PRN (03:16)
[2017-01-23] MEDS: MEROPENEM 0.5 G in IV NORMAL SALINE 50 ML IV SCH ×2 (05:24→12:45)
--- NOTE | 2017-01-23 06:00 | NUR ---
Patient slept well, no distress. VS stable, pt remains afebrile. IVF running, patent, no infiltration noted. Suprapubic romero cath intact, draining yellow, clear urine. Patient kept clean/dry, repositioned for comfort. Bed alarm on, will continue to monitor.
[2017-01-23 06:18] VITALS: BP 110/64
[2017-01-23 07:37] LABS: BASOPHILS % (AUTO) 0.3 % (0.0-2.0); EOSINOPHILS # (AUTO) 0.4 K/uL (0.0-0.7); EOSINOPHILS % (AUTO) 10.6 % (0.0-7.0); HEMATOCRIT 27.3 % (40-50); HEMOGLOBIN 8.3 G/DL (14.0-18.0); LYMPHOCYTES # (AUTO) 0.8 K/UL (0.8-4.8); LYMPHOCYTES % (AUTO) 20.9 % (20.5-51.5); MEAN CORPUSCULAR HEMOGLOBIN 24.3 UUG (27.0-31.0); MEAN CORPUSCULAR HGB CONC 30 g/dL (32.0-37.0); MEAN CORPUSCULAR VOLUME 80.2 FL (82.0-92.0); MONOCYTES # (AUTO) 0.5 K/UL (0.1-1.30); MONOCYTES % (AUTO) 12.5 % (0.0-11.0); NEUTROPHILS # (AUTO) 2.3 K/UL (1.8-8.9); NEUTROPHILS % (AUTO) 55.7 % (38.5-71.5); PLATELET COUNT (AUTO) 363 K/UL (150-450)
[2017-01-23 07:59] LABS: BILIRUBIN,TOTAL 0.1 mg/dL (0.2-1.0); CREATININE 0.8 mg/dL (0.6-1.3); PHOSPHOROUS 3.5 mg/dL (2.5-4.9); POTASSIUM 3.6 mmol/L (3.5-5.1); TOTAL PROTEIN, SERUM 5.2 g/dL (6.4-8.2)
[2017-01-23] MEDS ORDERED: PANT40TA2 PO (08:32)
[2017-01-23] MEDS ORDERED: MERO500V IV (08:32)
[2017-01-23] MEDS ORDERED: OXCA300T4 PO (08:32)
[2017-01-23] MEDS: LEVETIRACETAM 500 MG TABLET PO SCH (09:27)
[2017-01-23] MEDS: ESCITALOPRAM OXALATE 10 MG TABLET PO SCH (09:28)
[2017-01-23] MEDS: PANTOPRAZOLE SODIUM 40 MG VIAL IV SCH (09:28)
[2017-01-23] MEDS: MULTIVITAMINS,THERAPEUTIC TABLET PO SCH (09:28)
[2017-01-23] MEDS: FERROUS SULFATE 325 MG TABEC PO SCH (09:28)
[2017-01-23] MEDS: BACLOFEN 10 MG TABLET PO SCH (09:28)
[2017-01-23] MEDS: FINASTERIDE 5 MG TABLET PO SCH (09:28)
[2017-01-23] MEDS: OXCARBAZEPINE 300 MG TABLET PO SCH (09:28)
[2017-01-23] MEDS: MEMANTINE HCL 10 MG TABLET PO SCH (09:29)
[2017-01-23] MEDS: PROTEIN SUPPLEMENT (PROSTAT) 30 ML LIQUID PO SCH (09:29)
[2017-01-23 11:50] VITALS: BP 100/46
--- NOTE | 2017-01-23 14:30 | NUR ---
PT. RESTING BED AND REPOSITIONED THROUGHOUT SHIFT. BROTHER IN LAW AT BS MOST OF SHIFT. GOOD APPETITE WITH GOOD TOLERANCE. SUBPRAPUBIC CATHETER. SITE CLEANED AND DRESSING APPLIED. DR. CARL CALLED REGARDING NEW URINE CULTURE RESULTS AND NEW ORDER FOR IV ABX OBTAINED. DICK ARAGON AT [facility] CALLED FOR REPORT AND UPDATED REGARDING NEW ABX TO START TODAY. PT. AND FAMILY GIVEN DISHARGE INSTRUCTIONS AND ALL QUESTIONS ANSWERED. IV TO RIGHT WRIST REMAINED IN PLACE DUE TO CONTINUATION OF IV ABX. PT. LEFT UNIT AT 1430 VIA AMBULANCE FOR [facility].
[2017-01-23] MEDS ORDERED: CEFTRIAXONE 1 G in IV DEXTROSE 5% 50 ML IV SCH (21:00)
== END 2017-01-23 14:45 | DRG 380 ==
LOC: ER 13:49 → TELE 19:43 → MED 01-22 10:05
PROVIDERS: ADMIT Internal Medicine; ATTEND Internal Medicine
PROC: 0DB68ZZ Excision of Stomach, Via Natural or Artificial Opening Endoscopic (ICD-10-PCS; 2017-01-22)
PROC: 0DJD8ZZ Inspection of Lower Intestinal Tract, Via Natural or Artificial Opening Endoscopic (ICD-10-PCS; 2017-01-22)
PROC: 0DB98ZX Excision of Duodenum, Via Natural or Artificial Opening Endoscopic, Diagnostic (ICD-10-PCS; principal; 2017-01-22 10:30)
PROC: 0DB48ZX Excision of Esophagogastric Junction, Via Natural or Artificial Opening Endoscopic, Diagnostic (ICD-10-PCS; 2017-01-22 10:30)
DX: K22.11 Ulcer of esophagus with bleeding (principal); G93.40 Encephalopathy, unspecified; E44.1 Mild protein-calorie malnutrition; E88.09 Other disorders of plasma-protein metabolism, not elsewhere classified; N39.0 Urinary tract infection, site not specified; I50.9 Heart failure, unspecified; D50.0 Iron deficiency anemia secondary to blood loss (chronic); G40.909 Epilepsy, unspecified, not intractable, without status epilepticus; K57.30 Diverticulosis of large intestine without perforation or abscess without bleeding; M19.90 Unspecified osteoarthritis, unspecified site; Z87.19 Personal history of other diseases of the digestive system; Z87.440 Personal history of urinary (tract) infections; E86.0 Dehydration; B96.89 Other specified bacterial agents as the cause of diseases classified elsewhere; G31.9 Degenerative disease of nervous system, unspecified; N40.1 Benign prostatic hyperplasia with lower urinary tract symptoms; K31.7 Polyp of stomach and duodenum; K29.80 Duodenitis without bleeding; K44.9 Diaphragmatic hernia without obstruction or gangrene; F32.9 Major depressive disorder, single episode, unspecified; G80.9 Cerebral palsy, unspecified; Z68.33 Body mass index [BMI] 33.0-33.9, adult
CPT/HCPCS: 36415; 43235; 70030-TC; 71010; 83550; 83690; 83735; 84100; 84443; 85025; 85610; 86850; 86900; 86901; 87077; 87086; 93005; A4217; A4663; C1758; C9113; J0696; J2185; J2405; J3490; J7030; J7040; J7060

== ENCOUNTER 2017-04-21 16:57 | Inpatient (IN) | payer MEDICARE, OTHER ==
[~2017-04-21] VITALS: Ht 188 cm; Wt 109.3 kg
[~2017-04-21 16:57] MED LIST changes: -DEXT1CAP3 PO; -ESCI10TA PO; +ESCI5TAB PO; -FERR-58 PO; +FERR325T24 PO; +MERO500V IV; +OXCA300T4 PO; +PANT40TA2 PO
[2017-04-21] MEDS ORDERED: LORAZEPAM 2 MG/1 ML VIAL IV ONE (17:30)
--- NOTE | 2017-04-21 17:58 | NUR ---
patient taken down for CT .
[2017-04-21 18:10] LABS: BASOPHILS # (AUTO) 0.1 K/uL (0.0-8.0); BASOPHILS % (AUTO) 0.4 % (0.0-2.0); EOSINOPHILS # (AUTO) 0.1 K/uL (0.0-0.7); EOSINOPHILS % (AUTO) 0.7 % (0.0-7.0); HEMATOCRIT 37.1 % (36.7-47.1); HEMOGLOBIN 11.9 g/dL (12.5-16.3); LYMPHOCYTES # (AUTO) 0.7 K/uL (20.0-40.0); LYMPHOCYTES % (AUTO) 4.7 % (20.5-51.5); MEAN CORPUSCULAR HEMOGLOBIN 23.4 uug (23.8-33.4); MEAN CORPUSCULAR HGB CONC 32 g/dL (32.5-36.3); MEAN CORPUSCULAR VOLUME 73.1 fL (73.0-96.2); MONOCYTES # (AUTO) 0.8 K/uL (2.0-10.0); NEUTROPHILS # (AUTO) 12.3 K/uL (1.8-8.9); NEUTROPHILS % (AUTO) 88.2 % (38.5-71.5); PLATELET COUNT (AUTO) 307 K/uL (152-348); RED BLOOD CELL COUNT(AUTO) 5.07 MIL/uL (4.06-5.63); WHITE BLOOD COUNT (AUTO) 13.9 K/uL (3.6-10.2)
--- NOTE | 2017-04-21 18:10 | NUR ---
Patient back from Ct.
[2017-04-21 18:16] LABS: BILIRUBIN,DIRECT 0.1 mg/dL (0.0-0.2); BILIRUBIN,TOTAL 0.2 mg/dL (0.2-1.0); CREATININE 1.2 mg/dL (0.6-1.3); POTASSIUM 4.2 mmol/L (3.5-5.1); TOTAL PROTEIN, SERUM 6.8 g/dL (6.4-8.2)
[2017-04-21] MEDS ORDERED: BISACODYL 10 MG SUPP.RECT RC PRN ×2 (18:45→21:58)
[2017-04-21] MEDS ORDERED: MAGNESIUM HYDROXIDE 30 ML LIQUID UDC PO PRN ×2 (18:45→19:00)
[2017-04-21] MEDS ORDERED: MEROPENEM 1 G in IV NORMAL SALINE 100 ML IV ONE (18:45)
[2017-04-21] MEDS ORDERED: ALBUTEROL SULFATE 2.5 MG/3 ML NEBU IH PRN (18:45)
[2017-04-21] MEDS ORDERED: HYDROCODONE/APAP 5-325MG TABLET PO PRN (19:00)
[2017-04-21] MEDS ORDERED: LORAZEPAM 2 MG/1 ML VIAL IV PRN (19:00)
[2017-04-21] MEDS ORDERED: ONDANSETRON 4 MG/2 ML VIAL IV PRN (19:00)
[2017-04-21] MEDS ORDERED: MEROPENEM 1 G VIAL IV ONE (19:08)
[2017-04-21] MEDS ORDERED: LORAZEPAM 2 MG/1 ML VIAL ONE (19:09)
--- NOTE | 2017-04-21 19:22 | NUR ---
bedside report and pending admission will be endorse to incoming R.N.
--- NOTE | 2017-04-21 19:28 | NUR ---
RECIEVED REPORT FROM DICK ROSS
[2017-04-21] MEDS ORDERED: VANCOMYCIN IV 1,000 MG in IV DEXTROSE 5% 250 ML IV ONE (20:45)
[2017-04-21] MEDS ORDERED: IV NORMAL SALINE 1000 ML BAG IV ONE (20:45)
[2017-04-21] MEDS ORDERED: ACETAMINOPHEN ES 500 MG TABLET PO ONE (20:45)
[2017-04-21 20:48] LABS: *BILIRUBIN,URIN NEGATIVE (NEGATIVE); *BLOOD, URINE 2+ (NEGATIVE); *CLARITY,URINE CLOUDY (CLEAR); *COLOR,URINE YELLOW (YELLOW); *KETONES,URINE NEGATIVE (NEGATIVE); *PROTEIN,URINE 2+ (NEGATIVE); *UROBILINOGEN,URINE 0.2 E.U./dl (NORMAL); LEUKOCYTE ESTERASE ,URINE 1+ (NEGATIVE); NITRITE, URINE NEGATIVE (NEGATIVE); UGLUCOSE NEGATIVE (NEGATIVE)
[2017-04-21] MEDS ORDERED: VANCOMYCIN IV 200 ML ONE (20:48)
[2017-04-21 20:56] LABS: BACTERIA,URINE MODERATE /HPF (NONE SEEN); SQUAMOUS EPITHELIAL CELL,UR FEW /HPF (NONE SEEN); WBC,URINE 20-50 /HPF (0-3)
[2017-04-21 20:57] LABS: URINE AMORPHOUS PHOSPHATES MODERATE /HPF
[2017-04-21] MEDS ORDERED: OXCARBAZEPINE 150 MG TABLET PO SCH (21:00)
[2017-04-21] MEDS ORDERED: Medication Not On Formulary EA (Melatonin 5 MG) PO SCH (21:00)
[2017-04-21] MEDS ORDERED: MEROPENEM 500 MG VIAL IV SCH (21:00)
[2017-04-21] MEDS ORDERED: ACETAMINOPHEN ES 500 MG TABLET ONE (21:02)
--- NOTE | 2017-04-21 21:35 | NUR ---
REPORT GIVEN TO TELE NURSE DICK BURNETTE
[2017-04-21 22:00] VITALS: BP 106/65
--- NOTE | 2017-04-21 22:00 | NUR ---
Pt received awake and alert, no s/s of distress noted at this time. Placed on tele monitor, noted to be sinus rhythm with HR in 80's. Will continue to monitor.
--- NOTE | 2017-04-21 22:15 | NUR ---
Continuation of ER Fluid challenge for Sepsis on going, IV Bolus NS bag #2 infusing well via right forearm IV line. Patient's current temp 99.4F
[2017-04-21] MEDS: TAMSULOSIN HCL 0.4 MG CAP.SR.24H PO SCH (23:08)
[2017-04-21] MEDS: LEVETIRACETAM 250 MG TABLET PO SCH (23:08)
[2017-04-21] MEDS: ACETAMINOPHEN 325 MG TABLET PO PRN (23:09)
[2017-04-21] MEDS: OXCARBAZEPINE 300 MG TABLET PO SCH (23:09)
--- NOTE | 2017-04-21 23:15 | NUR ---
Left forearm IV line infiltrated. Placed a new IV line- [id number]- right hand. IV fluid maintained. Sinus rhythm on the monitor. Tylenol 650 mg po adm for temp 99.4F. Cooling measures applied.
[2017-04-21] MEDS: IV NS 1000 ML 1,000 ML IV PRN (23:58)
[2017-04-22] VITALS: BP 120/72
--- NOTE | 2017-04-22 00:05 | NUR ---
Wheezing noted, coughing on & off non productively. IV Bolus of NS bag #2 (from ER) discontinued. Aspiration precaution observed, kept head of bed elevated.
--- NOTE | 2017-04-22 01:10 | NUR ---
Patient slightly short of breath. Breathing treatment provided.
--- NOTE | 2017-04-22 02:21 | NUR ---
Remains wheezing w/ persistent cough noted, Kaur Cifuentes PUBLIC HEALTH ADMINISTRATOR notified.
[2017-04-22] MEDS ORDERED: methylPREDNISolone SOD SUCC 40 MG/ML VIAL IV ONE (03:00)
--- NOTE | 2017-04-22 03:00 | NUR ---
Patient asleep, no sign of distress noted. Sinus rhythm on the monitor.
--- NOTE | 2017-04-22 03:00 | NUR ---
Solumedrol 40 mg IVP adm as ordered, & monitored for changes. Sinus rhythm on the monitor.
[2017-04-22 04:00] VITALS: BP 122/62
[2017-04-22 06:45] LABS: BASOPHILS % (AUTO) 0.3 % (0.0-2.0); EOSINOPHILS % (AUTO) 0.3 % (0.0-7.0); HEMATOCRIT 36.9 % (36.7-47.1); HEMOGLOBIN 11.3 g/dL (12.5-16.3); LYMPHOCYTES # (AUTO) 0.7 K/uL (20.0-40.0); LYMPHOCYTES % (AUTO) 6.4 % (20.5-51.5); MEAN CORPUSCULAR HEMOGLOBIN 22.7 uug (23.8-33.4); MEAN CORPUSCULAR HGB CONC 31 g/dL (32.5-36.3); MEAN CORPUSCULAR VOLUME 73.9 fL (73.0-96.2); MONOCYTES # (AUTO) 0.2 K/uL (2.0-10.0); MONOCYTES % (AUTO) 1.9 % (0.0-11.0); NEUTROPHILS # (AUTO) 9.7 K/uL (1.8-8.9); NEUTROPHILS % (AUTO) 91.1 % (38.5-71.5); PLATELET COUNT (AUTO) 326 K/uL (152-348); RED BLOOD CELL COUNT(AUTO) 4.98 MIL/uL (4.06-5.63); WHITE BLOOD COUNT (AUTO) 10.7 K/uL (3.6-10.2)
--- NOTE | 2017-04-22 06:46 | NUR ---
Repositioned in bed, patient resting comfortably, w/ O2 mist 4L nasally. Afebrile at this time.
[2017-04-22 07:01] LABS: MAGNESIUM 2.4 mg/dL (1.8-2.4); POTASSIUM 4.2 mmol/L (3.5-5.1)
--- NOTE | 2017-04-22 07:46 | NUR ---
RECEIVED PATIENT IN BED ASLEEP BUT IS EASILY AROUSABLE ON ROUNDS TURNED AND REPOSITIONED NO SEIZURE ACTIVITIES AT THIS TIME REMAIN ON IVF ORDERED NO SHORTNESS OF BREATH AT THIS TIME ON O2 AT 4L/M SUPRAPUBIC CATH REMAINS INTACT WITH ADEQUATE AMOUNT OF URINE AT THIS TIME MADE COMFORTABLE AND WILL CONTINUE TO OBSERVE.
[2017-04-22] MEDS ORDERED: MEROPENEM 0.5 G in IV NORMAL SALINE 50 ML IV ONE (08:00)
--- NOTE | 2017-04-22 08:15 | NUR ---
RECEIVED CALL FROM THE LAB THAT PATIENTS LACTIC ACID LEVEL IS 2.[address] MI WITH NO NEW ORDERS AT THIS TIME.
[2017-04-22] MEDS: OXCARBAZEPINE 300 MG TABLET PO SCH ×2 (08:29→21:14)
[2017-04-22] MEDS: PANTOPRAZOLE SODIUM 40 MG TABLET.DR PO SCH ×2 (08:30→16:13)
[2017-04-22] MEDS: FINASTERIDE 5 MG TABLET PO SCH (08:30)
[2017-04-22] MEDS: MULTIVITAMINS,THERAPEUTIC TABLET PO SCH (08:30)
[2017-04-22] MEDS: ESCITALOPRAM OXALATE 10 MG TABLET PO SCH (08:30)
[2017-04-22] MEDS: BACLOFEN 10 MG TABLET PO SCH (08:30)
[2017-04-22] MEDS: MEMANTINE HCL 10 MG TABLET PO SCH ×2 (08:30→16:13)
[2017-04-22] MEDS: LEVETIRACETAM 250 MG TABLET PO SCH (08:30)
[2017-04-22] MEDS: Z GUARD REMEDY PASTE 57 GM TUBE TOP PRN (08:32)
[2017-04-22] MEDS: PROTEIN SUPPLEMENT (PROSTAT) 30 ML LIQUID PO SCH ×2 (08:35→16:13)
[2017-04-22] MEDS ORDERED: Medication Not On Formulary EA (Multivitamins (Multivitamin) 1 EACH) PO SCH (09:00)
[2017-04-22] MEDS ORDERED: Medication Not On Formulary EA (Amino Acids/Protein Hydrolys (Pro-Stat Sugar Free Liquid PO SCH (09:00)
[2017-04-22] MEDS ORDERED: Medication Not On Formulary EA (Cranberry Extract (Cranberry) 450 MG) PO SCH (09:00)
[2017-04-22] MEDS ORDERED: Medication Not On Formulary EA (Escitalopram Oxalate (Lexapro) 5 MG) PO SCH (09:00)
[2017-04-22 11:32] VITALS: BP 99/55
[2017-04-22] MEDS: methylPREDNISolone SOD SUCC 40 MG/ML VIAL IV SCH ×2 (13:14→21:17)
--- NOTE | 2017-04-22 14:42 | NUR ---
OCCASSIONAL COUGH EPISODES NOTED BUT NO WHEEZING AND NO SHORTNESS OF BREATH AT THIS TIME.REMAIN ON O2 ORDERED.TURNED AND REPOSITIONED AND HEELS FLOATED MAX ASSIST FOR ALL ADLS NO SEIZURE ACTIVITIES NOTED.
[2017-04-22 15:34] VITALS: BP 114/60
[2017-04-22] MEDS: CEFTRIAXONE 1 G in IV DEXTROSE 5% 50 ML IV SCH (15:35)
[2017-04-22] MEDS: IV NS 1000 ML 1,000 ML IV PRN (19:57)
--- NOTE | 2017-04-22 20:00 | NUR ---
Received pt awake and alert - no cough or SOB noted at this time. Will continue to monitor.
[2017-04-22 20:13] VITALS: BP 114/67
[2017-04-22] MEDS ORDERED: LEVETIRACETAM 250 MG TABLET PO SCH (21:00)
[2017-04-22] MEDS: TAMSULOSIN HCL 0.4 MG CAP.SR.24H PO SCH (21:14)
[2017-04-22] MEDS: LEVETIRACETAM 500 MG TABLET PO SCH (21:14)
[2017-04-22] MEDS: MELATONIN 3 MG TABLET PO SCH (21:15)
[2017-04-22] MEDS: Z GUARD REMEDY PASTE 57 GM TUBE TOP SCH (21:15)
[2017-04-23 00:25] VITALS: BP 125/67
[2017-04-23 04:00] VITALS: BP 122/63
[2017-04-23] MEDS: methylPREDNISolone SOD SUCC 40 MG/ML VIAL IV SCH ×3 (06:40→20:50)
[2017-04-23] MEDS: ACETAMINOPHEN 325 MG TABLET PO PRN (06:41)
--- NOTE | 2017-04-23 06:45 | NUR ---
Pt noted to have slept throughout the night. No cough noted throughout shift, but wheezing still present. Tele noted to be sinus with HR in the 60's.
[2017-04-23] MEDS: IV NS 1000 ML 1,000 ML IV PRN ×2 (06:46→20:49)
--- NOTE | 2017-04-23 08:00 | NUR ---
AWAKE ALERT AND NO SIGNS OF DISTRESS WITH O2 AT 4 L NC SATURATING 98%, SR ON MONITOR
[2017-04-23] MEDS: FERROUS SULFATE 325 MG TABEC PO SCH (08:16)
[2017-04-23] MEDS: PANTOPRAZOLE SODIUM 40 MG TABLET.DR PO SCH ×2 (08:16→17:14)
[2017-04-23] MEDS: LEVETIRACETAM 500 MG TABLET PO SCH ×2 (08:16→20:49)
[2017-04-23] MEDS: FINASTERIDE 5 MG TABLET PO SCH (08:17)
[2017-04-23] MEDS: MEMANTINE HCL 10 MG TABLET PO SCH ×2 (08:17→17:14)
[2017-04-23] MEDS: OXCARBAZEPINE 300 MG TABLET PO SCH ×2 (08:17→20:49)
[2017-04-23] MEDS: PROTEIN SUPPLEMENT (PROSTAT) 30 ML LIQUID PO SCH ×2 (08:17→17:14)
[2017-04-23] MEDS: ESCITALOPRAM OXALATE 10 MG TABLET PO SCH (08:17)
[2017-04-23] MEDS: MULTIVITAMINS,THERAPEUTIC TABLET PO SCH (08:17)
[2017-04-23] MEDS: BACLOFEN 10 MG TABLET PO SCH (08:17)
[2017-04-23] MEDS: Z GUARD REMEDY PASTE 57 GM TUBE TOP SCH ×2 (08:18→20:50)
[2017-04-23 11:14] VITALS: BP 101/55
--- NOTE | 2017-04-23 11:30 | NUR ---
SEEN BY DR CARL SEE NOTES FOR DETAILS
[2017-04-23] MEDS: CEFTRIAXONE 1 G in IV DEXTROSE 5% 50 ML IV SCH (15:08)
[2017-04-23 15:31] VITALS: BP 116/57
--- NOTE | 2017-04-23 17:58 | NUR ---
RESTING COMFORTABLY, NO SIGNS OF SEIZURE, PAIN OR DISTRESS. CONTINUE CURRENT TX PLAN
[2017-04-23 20:00] VITALS: BP 119/62
--- NOTE | 2017-04-23 20:02 | NUR ---
PT NOTED TO BE AWAKE, COOPERATIVE AND ALERT TO SELF. NO COUGH OR SOB NOTED AT THIS TIME. WILL CONTINUE TO MONITOR.
[2017-04-23] MEDS: TAMSULOSIN HCL 0.4 MG CAP.SR.24H PO SCH (20:49)
[2017-04-23] MEDS: MELATONIN 3 MG TABLET PO SCH (20:50)
--- NOTE | 2017-04-24 05:10 | NUR ---
Slept comfortably throughout the night. No cough noted, no c/o pain throughout the night. Bed in low, locked position. Bed alarm on. Call light within reach.
[2017-04-24] MEDS: methylPREDNISolone SOD SUCC 40 MG/ML VIAL IV SCH ×2 (05:51→14:29)
[2017-04-24] MEDS: Z GUARD REMEDY PASTE 57 GM TUBE TOP PRN (05:52)
[2017-04-24 06:00] VITALS: BP 115/62
[2017-04-24] MEDS ORDERED: MENT71OI TOP (08:05)
[2017-04-24] MEDS ORDERED: OXCA300T4 PO (08:05)
[2017-04-24] MEDS ORDERED: MULT-24 PO (08:05)
[2017-04-24] MEDS ORDERED: LEVE500T9 PO (08:05)
[2017-04-24] MEDS: FERROUS SULFATE 325 MG TABEC PO SCH (09:36)
[2017-04-24] MEDS: LEVETIRACETAM 500 MG TABLET PO SCH (09:36)
[2017-04-24] MEDS: MULTIVITAMINS,THERAPEUTIC TABLET PO SCH (09:37)
[2017-04-24] MEDS: ESCITALOPRAM OXALATE 10 MG TABLET PO SCH (09:37)
[2017-04-24] MEDS: PANTOPRAZOLE SODIUM 40 MG TABLET.DR PO SCH ×2 (09:37→17:02)
[2017-04-24] MEDS: FINASTERIDE 5 MG TABLET PO SCH (09:37)
[2017-04-24] MEDS: BACLOFEN 10 MG TABLET PO SCH (09:37)
[2017-04-24] MEDS: OXCARBAZEPINE 300 MG TABLET PO SCH (09:37)
[2017-04-24] MEDS: MEMANTINE HCL 10 MG TABLET PO SCH ×2 (09:37→17:02)
[2017-04-24] MEDS: Z GUARD REMEDY PASTE 57 GM TUBE TOP SCH (09:38)
[2017-04-24] MEDS: PROTEIN SUPPLEMENT (PROSTAT) 30 ML LIQUID PO SCH ×2 (09:38→17:02)
[2017-04-24 11:55] VITALS: BP 100/57
[2017-04-24] MEDS: CEFTRIAXONE 1 G in IV DEXTROSE 5% 50 ML IV SCH (14:29)
[2017-04-24] MEDS: IV NS 1000 ML 1,000 ML IV PRN (14:29)
[2017-04-24 15:30] VITALS: BP 103/58
--- NOTE | 2017-04-24 17:45 | NUR ---
Patient discharged to [facility]. Patient is alert, in no distress. Patient is unable to sign discharge papers and belonging list, witnessed by 2 RNs. Patient unable to understand discharge teachings/instructions, need reinforcement. IV access removed. Suprapubic cath patent/intact, draining yellow urine. VS stable, afebrile. Awaiting for ambulance transportation.
[2017-04-24 19:00] VITALS: BP 125/71
--- NOTE | 2017-04-24 19:25 | NUR ---
PT RECEIVED IN BED, AWAKE. A/OX1. ABLE TO MAKE NEEDS KNOWN. V/S STABLE. IN NO ACUTE DISTRESS. NO C/O PAIN AT THIS TIME. NO IV IN PLACE, PT READY FOR DISCHARGE. ON 4LNC, TOLERATING WELL. SUPRAPUBIC CATHETER INTACT AND PATENT. HOB ELEVATED. SAFETY MEASURES IMPLEMENTED. CALL LIGHT WITHIN REACH.
--- NOTE | 2017-04-24 20:05 | NUR ---
PT DISCHARGED IN STABLE CONDITION. CONT ON 4LNC. NO IV IN PLACED. DISCHARGED INSTRUCTIONS PROVIDED TO EMT. BELONGINGS LIST SIGNED. ALL NEEDS ATTENDED. SAFETY MAINTAINED.
== END 2017-04-24 20:05 | DRG 100 ==
LOC: ER 16:58 → TELE 21:33 → MED 04-23 08:43
PROVIDERS: ADMIT Internal Medicine; ATTEND Internal Medicine
DX: G40.909 Epilepsy, unspecified, not intractable, without status epilepticus (principal); A41.9 Sepsis, unspecified organism; E44.1 Mild protein-calorie malnutrition; F03.90 Unspecified dementia, unspecified severity, without behavioral disturbance, psychotic disturbance, mood disturbance, and anxiety; I50.32 Chronic diastolic (congestive) heart failure; E88.09 Other disorders of plasma-protein metabolism, not elsewhere classified; N39.0 Urinary tract infection, site not specified; G80.9 Cerebral palsy, unspecified; Z87.440 Personal history of urinary (tract) infections; D50.9 Iron deficiency anemia, unspecified; Z68.30 Body mass index [BMI] 30.0-30.9, adult; Z93.50 Unspecified cystostomy status; G31.9 Degenerative disease of nervous system, unspecified; Z79.899 Other long term (current) drug therapy; E86.0 Dehydration; Z87.81 Personal history of (healed) traumatic fracture; B96.1 Klebsiella pneumoniae [K. pneumoniae] as the cause of diseases classified elsewhere; Z16.12 Extended spectrum beta lactamase (ESBL) resistance
CPT/HCPCS: 36415; 70030-TC; 70450; 71045; 83605; 83735; 84100; 85025; 85730; 87040; 87077; 87086; 93005; 94664; A4663; A9150; J0696; J2060; J2185; J2920; J3370; J3490; J7030; J7060

== ENCOUNTER 2017-08-01 17:18 | Inpatient (IN) | payer MEDICARE, MEDICAID ==
[~2017-08-01] VITALS: Ht 188 cm; Wt 109.1 kg
[~2017-08-01 17:18] MED LIST changes: +LEVE500T9 PO; -LEVE750T10 PO; +MENT71OI TOP; -MERO500V IV; +MULT-24 PO
[2017-08-01] MEDS ORDERED: GENTAMICIN SULFATE INJ 80 MG in IV DEXTROSE 5% 100 ML IV ONE (17:30)
[2017-08-01] MEDS ORDERED: CEFTAZIDIME 1 G in IV DEXTROSE 5% 50 ML IV ONE (17:30)
[2017-08-01] MEDS ORDERED: VANCOMYCIN IV 1,000 MG in IV DEXTROSE 5% 250 ML IV ONE (17:30)
[2017-08-01] MEDS ORDERED: IV NORMAL SALINE 1000 ML BAG IV ONE (17:30)
[2017-08-01] MEDS ORDERED: OXCA300T PO (17:32)
[2017-08-01] MEDS ORDERED: ACET-2154 PO (17:32)
[2017-08-01] MEDS ORDERED: LEVE500T9 PO (17:32)
[2017-08-01] MEDS ORDERED: DIPH25TA62 PO (17:32)
[2017-08-01] MEDS ORDERED: VANCOMYCIN IV 200 ML ONE (17:53)
[2017-08-01] MEDS ORDERED: CEFTAZIDIME 1 G VIAL ONE (17:53)
[2017-08-01] MEDS ORDERED: GENTAMICIN SULFATE 80 MG/2 ML VIAL ONE (17:54)
[2017-08-01 18:01] LABS: *BILIRUBIN,URIN NEGATIVE (NEGATIVE); *BLOOD, URINE 1+ (NEGATIVE); *CLARITY,URINE SLIGHTLY CLOUDY (CLEAR); *COLOR,URINE YELLOW (YELLOW); *KETONES,URINE NEGATIVE (NEGATIVE); *PROTEIN,URINE NEGATIVE (NEGATIVE); *UROBILINOGEN,URINE 0.2 E.U./dl (NORMAL); LEUKOCYTE ESTERASE ,URINE 1+ (NEGATIVE); NITRITE, URINE NEGATIVE (NEGATIVE); PH,URINE 5.5 (5.0-8.0); UGLUCOSE NEGATIVE (NEGATIVE)
[2017-08-01 18:02] LABS: BASOPHILS # (AUTO) 0.1 K/uL (0.0-8.0); BASOPHILS % (AUTO) 0.5 % (0.0-2.0); EOSINOPHILS # (AUTO) 0.4 K/uL (0.0-0.7); HEMATOCRIT 42.1 % (36.7-47.1); HEMOGLOBIN 13.4 g/dL (12.5-16.3); LYMPHOCYTES # (AUTO) 1.3 K/uL (20.0-40.0); LYMPHOCYTES % (AUTO) 11.3 % (20.5-51.5); MEAN CORPUSCULAR HEMOGLOBIN 26.3 uug (23.8-33.4); MEAN CORPUSCULAR HGB CONC 32 g/dL (32.5-36.3); MEAN CORPUSCULAR VOLUME 82.7 fL (73.0-96.2); MONOCYTES # (AUTO) 0.6 K/uL (2.0-10.0); MONOCYTES % (AUTO) 5.2 % (0.0-11.0); NEUTROPHILS # (AUTO) 9.5 K/uL (1.8-8.9); PLATELET COUNT (AUTO) 171 K/uL (152-348); RED BLOOD CELL COUNT(AUTO) 5.09 MIL/uL (4.06-5.63); WHITE BLOOD COUNT (AUTO) 11.9 K/uL (3.6-10.2)
[2017-08-01 18:11] LABS: POTASSIUM 3.7 mmol/L (3.5-5.1)
[2017-08-01 18:23] LABS: BILIRUBIN,DIRECT 0.1 mg/dL (0.0-0.2); BILIRUBIN,TOTAL 0.3 mg/dL (0.2-1.0); TOTAL PROTEIN, SERUM 6.6 g/dL (6.4-8.2)
[2017-08-01 18:25] LABS: CALCIUM OXALATE CRYSTALS,UR FEW /HPF (NONE SEEN); MUCUS,URINE MANY /LPF (0-FEW); URINE AMORPHOUS URATE FEW /HPF
--- NOTE | 2017-08-01 18:49 | NUR ---
mse completed, admit order written, belongings list done, iv fluids infusing, mrsa-nares ordered and sent. pt's family at the bedside.
--- NOTE | 2017-08-01 19:14 | NUR ---
sbar report to andrew chirinos rn.
--- NOTE | 2017-08-01 19:58 | NUR ---
Keshawn garcia in [facility] - 08/01/17 at 2046 by ANTIONETTE REPORT GIVEN TO TELEMETRY NURSEJOSE RN
--- NOTE | 2017-08-01 19:58 | NUR ---
REPORT GIVEN TO [facility] NURSE, DICK GARCIA
--- NOTE | 2017-08-01 19:59 | NUR ---
NS FLUIDS INFUSING, ENDORSED TO [facility] NURSE, DICK GARCIA
--- NOTE | 2017-08-01 20:25 | NUR ---
Pt. admitted to [facility], under care of CONCRETE PIPE PLANT SUPERVISOR Philip ELIAS Belongs List completed
--- NOTE | 2017-08-01 20:30 | NUR ---
Admitted a 72 y/o male with diagnosis of Pneumonia. Patient alert to name only. Confused and disoriented with flat affect. No s/sx of pain or SOB noted./ O2 at 3LPM via NC in place. O2 sat at 93% In no acute distress. IV site on left hand intact and patent. IV ABX running at this time. On fluid challenge. Started new IV site on left FA gauge #20. Supra pubic catheter draining via gravity. Routine admission care done. Plan of care initiated. Safety measure initiated and call arciniega within reach.
[2017-08-01] MEDS ORDERED: DOSING BY PHARMACY-MD TO SPECIFY MED/ROUTE XX PRN (21:00)
--- NOTE | 2017-08-01 21:35 | NUR ---
PHONE CONVERSATION WITH PT"S SISTER,FANTASMA, CONFIRMING THAT PT HAS A [facility]..
[2017-08-01] MEDS ORDERED: ALBUTEROL SULFATE 2.5 MG/3 ML NEBU NEB PRN (22:00)
[2017-08-01] MEDS: PIPERACILLIN/TAZOBACTAM/D5W 50 ML IV SCH (22:00)
[2017-08-01] MEDS ORDERED: MELATONIN 3 MG TABLET PO SCH ×2 (22:00→22:45)
[2017-08-01] MEDS ORDERED: PIPERACILLIN SODIUM/TAZO 3.375 GM VIAL ONE (22:02)
[2017-08-01] MEDS: OXCARBAZEPINE 300 MG TABLET PO SCH (22:44)
[2017-08-01] MEDS: LEVETIRACETAM 500 MG TABLET PO SCH (22:44)
[2017-08-01] MEDS: TAMSULOSIN HCL 0.4 MG CAP.SR.24H PO SCH (22:44)
[2017-08-01] MEDS ORDERED: MELATONIN 3 MG TABLET ONE (23:29)
[2017-08-01] MEDS: MELATONIN 3 MG TABLET PO SCH (23:30)
[2017-08-02] MEDS: PIPERACILLIN/TAZOBACTAM/D5W 50 ML IV SCH ×4 (03:02→21:40)
[2017-08-02 03:36] VITALS: BP 138/75
--- NOTE | 2017-08-02 06:03 | NUR ---
Patient alert to name only, affect flat. Able to say "yes" when asked a question. No s/sx of pain or SOB. O2 at 3LPM via NC in place. O2 sat at 91%. No coughing noted. Lung CTA. IV site on left hand and forearm remains intact and patent. No adverse reaction noted from IV ABX. Fluid challenge total 2600ml. Supra pubic catheter draining via gravity. Safety measure maintained.
[2017-08-02 06:36] LABS: MONOCYTES # (AUTO) 0.5 K/uL (2.0-10.0); PLATELET COUNT (AUTO) 152 K/uL (152-348)
[2017-08-02 06:43] LABS: POTASSIUM 3.5 mmol/L (3.5-5.1)
[2017-08-02 06:53] LABS: BASOPHILS % (AUTO) 0.4 % (0.0-2.0); EOSINOPHILS # (AUTO) 0.3 K/uL (0.0-0.7); EOSINOPHILS % (AUTO) 4.2 % (0.0-7.0); LYMPHOCYTES # (AUTO) 0.9 K/uL (20.0-40.0); LYMPHOCYTES % (AUTO) 10.6 % (20.5-51.5); MEAN CORPUSCULAR HEMOGLOBIN 26.7 uug (23.8-33.4); MEAN CORPUSCULAR HGB CONC 32 g/dL (32.5-36.3); MEAN CORPUSCULAR VOLUME 82.9 fL (73.0-96.2); NEUTROPHILS # (AUTO) 6.4 K/uL (1.8-8.9); NEUTROPHILS % (AUTO) 78.8 % (38.5-71.5); RED BLOOD CELL COUNT(AUTO) 4.39 MIL/uL (4.06-5.63)
[2017-08-02 06:55] LABS: HEMATOCRIT 36.4 % (36.7-47.1); HEMOGLOBIN 11.7 g/dL (12.5-16.3); WHITE BLOOD COUNT (AUTO) 8.2 K/uL (3.6-10.2)
--- NOTE | 2017-08-02 07:00 | NUR ---
PATIENT RECEIVED ON BED AWAKE, NO ACUTE DISTRESS NOTED ON O2 AT 3LPM, TOLERATING WELL. MAX ASSIST WITH MEALS AND CARE. UPPER EXTREMITIES WEAK AND BOTH LOWER EXTREMITIES ARE CONTRACTED. WITH IV SITES ON THE LEFT AND AND FOREARM # 18 AND #20 RESPECTIVELY, BOTH INTACT AND PATENT. ADVANCED DIRECTIVE TO BE CLARIFIED WITH RELATIVES WHEN THEY COME. NO COMPLAINTS OF PAIN/DISCO,FORT, WITH SUPRAPUBIC CATH INTACT AND DRAINING YELLOW URINE. WILL CONTINUE TO MONITOR CLOSELY.
[2017-08-02] MEDS: LEVETIRACETAM 500 MG TABLET PO SCH ×2 (08:16→21:39)
[2017-08-02] MEDS: OXCARBAZEPINE 300 MG TABLET PO SCH ×2 (08:16→21:39)
[2017-08-02] MEDS ORDERED: ALBUTEROL SULFATE 2.5 MG/3 ML NEBU IH PRN (10:30)
[2017-08-02] MEDS ORDERED: DEXTROSE 50% 50 ML DISP.SYRIN IV PRN (10:45)
[2017-08-02] MEDS: BLOOD SUGAR DIAGNOSTIC 1 EACH STRIP VI SCH ×3 (11:59→21:40)
[2017-08-02] MEDS: INSULIN REGULAR, HUMAN 300 UNIT/3 ML VIAL SQ PRN ×3 (12:00→21:50)
[2017-08-02 12:14] VITALS: BP 102/65
[2017-08-02] MEDS ORDERED: HOME MED MISCELLANEOUS XX SCH (12:15)
[2017-08-02] MEDS ORDERED: diphenhydrAMINE 25 MG CAP PO PRN (12:15)
[2017-08-02] MEDS ORDERED: ACETAMINOPHEN 325 MG TABLET PO PRN (12:15)
[2017-08-02 15:44] VITALS: BP 106/63
[2017-08-02] MEDS: MEMANTINE HCL 10 MG TABLET PO SCH (16:56)
[2017-08-02] MEDS: PANTOPRAZOLE SODIUM 40 MG TABLET.DR PO SCH (16:56)
[2017-08-02] MEDS: FUROSEMIDE 20 MG TABLET PO SCH (16:56)
[2017-08-02] MEDS: PROTEIN SUPPLEMENT (PROSTAT) 30 ML LIQUID PO SCH (16:56)
--- NOTE | 2017-08-02 17:33 | NUR ---
PATIENT IN BED AWAKE. NO ACUTE DISTRESS NOTED, IV SITES STILL INTACT AND PATENT. BLOOD SUGAR 193 3 UNITS INSULIN COVERAGE GIVEN. SMALL BM X 1. KEPT CLEAN AND COMFORTABLE. POLST CLARIFIED WITH SISTER, PATIENT IS DNR SELECTIVE TX, SEEN AND EXAMINED BY DR. MIRANDA TODAY NEW ORDERS NOTED AND CARRIED OUT. WILL CONTINUE TO MONITOR CLOSELY.
[2017-08-02 19:28] VITALS: BP 118/83
[2017-08-02] MEDS ORDERED: LEVETIRACETAM 500 MG TABLET PO SCH (21:00)
[2017-08-02] MEDS ORDERED: OXCARBAZEPINE 300 MG TABLET PO SCH (21:00)
[2017-08-02] MEDS ORDERED: TAMSULOSIN HCL 0.4 MG CAP.SR.24H PO SCH (21:00)
[2017-08-02] MEDS ORDERED: MELATONIN 3 MG TABLET PO SCH ×2 (21:00)
[2017-08-02] MEDS: MELATONIN 3 MG TABLET PO SCH (21:39)
[2017-08-02] MEDS: TAMSULOSIN HCL 0.4 MG CAP.SR.24H PO SCH (21:39)
[2017-08-03] MEDS: PIPERACILLIN/TAZOBACTAM/D5W 50 ML IV SCH ×4 (03:14→20:31)
[2017-08-03 03:36] VITALS: BP 108/70
[2017-08-03 06:43] LABS: CREATININE 0.9 mg/dL (0.6-1.3); MAGNESIUM 2.1 mg/dL (1.8-2.4); PHOSPHOROUS 3.6 mg/dL (2.5-4.9); POTASSIUM 3.3 mmol/L (3.5-5.1)
[2017-08-03 06:52] LABS: BASOPHILS % (AUTO) 0.3 % (0.0-2.0); EOSINOPHILS # (AUTO) 0.5 K/uL (0.0-0.7); EOSINOPHILS % (AUTO) 6.5 % (0.0-7.0); HEMATOCRIT 37.3 % (36.7-47.1); HEMOGLOBIN 12.2 g/dL (12.5-16.3); LYMPHOCYTES # (AUTO) 0.9 K/uL (20.0-40.0); LYMPHOCYTES % (AUTO) 11.5 % (20.5-51.5); MEAN CORPUSCULAR HGB CONC 33 g/dL (32.5-36.3); MEAN CORPUSCULAR VOLUME 82.3 fL (73.0-96.2); MONOCYTES # (AUTO) 0.5 K/uL (2.0-10.0); MONOCYTES % (AUTO) 5.6 % (0.0-11.0); NEUTROPHILS # (AUTO) 6.1 K/uL (1.8-8.9); NEUTROPHILS % (AUTO) 76.1 % (38.5-71.5); PLATELET COUNT (AUTO) 153 K/uL (152-348); RED BLOOD CELL COUNT(AUTO) 4.53 MIL/uL (4.06-5.63)
[2017-08-03] MEDS: BLOOD SUGAR DIAGNOSTIC 1 EACH STRIP VI SCH ×4 (06:53→20:59)
[2017-08-03 08:09] LABS: *CREATININE,URINE 97.1 mg/dL (30-125); *URINE TOTAL PROTEIN RANDOM 36.8 mg/dL (<150/24HR)
[2017-08-03] MEDS: PROTEIN SUPPLEMENT (PROSTAT) 30 ML LIQUID PO SCH ×2 (09:38→16:49)
[2017-08-03] MEDS: PANTOPRAZOLE SODIUM 40 MG TABLET.DR PO SCH ×2 (09:39→16:48)
[2017-08-03] MEDS: FERROUS SULFATE 325 MG TABEC PO SCH (09:39)
[2017-08-03] MEDS: OXCARBAZEPINE 300 MG TABLET PO SCH ×2 (09:39→20:31)
[2017-08-03] MEDS: FINASTERIDE 5 MG TABLET PO SCH (09:39)
[2017-08-03] MEDS: BACLOFEN 10 MG TABLET PO SCH (09:39)
[2017-08-03] MEDS: LEVETIRACETAM 500 MG TABLET PO SCH ×2 (09:39→20:32)
[2017-08-03] MEDS: ESCITALOPRAM OXALATE 10 MG TABLET PO SCH (09:39)
[2017-08-03] MEDS: FUROSEMIDE 20 MG TABLET PO SCH ×2 (09:39→16:48)
[2017-08-03] MEDS: MEMANTINE HCL 10 MG TABLET PO SCH ×2 (09:39→16:48)
[2017-08-03] MEDS: MULTIVITAMINS,THERAPEUTIC TABLET PO SCH (09:39)
[2017-08-03] MEDS ORDERED: POTASSIUM CHLORIDE 20 MEQ TAB.PRT.SR PO ONE (10:00)
[2017-08-03 11:26] VITALS: BP 99/60
[2017-08-03] MEDS: INSULIN REGULAR, HUMAN 300 UNIT/3 ML VIAL SQ PRN ×3 (11:44→20:58)
[2017-08-03 15:20] VITALS: BP 105/72
[2017-08-03] MEDS: METFORMIN HCL 500 MG TABLET PO SCH (16:48)
--- NOTE | 2017-08-03 19:30 | NUR ---
PT ALERT AWAKE AND ORIENTED TO SELF IN NO ACUTE DISTRESS. OXYGEN MAINTAINED AT 3L/MIN VIA N/C. DENIES ANY PAIN OR SOB. NO S/S OF HYPER/HYPOGLYCEMIA. MAINTAINED ON ASPIRATION PRECAUTION. SUPRAPUBIC CATHETER INTACT DRAINING WELL. NO REACTION TO PREVIOUS ZOSYN ATB IV THERAPY. WILL CONTINUE TO MONITOR. BED ALARM ON WITH 3 SIDE RAILS RAISED.
[2017-08-03 20:16] VITALS: BP 115/65
[2017-08-03] MEDS: MELATONIN 3 MG TABLET PO SCH (20:31)
[2017-08-03] MEDS: TAMSULOSIN HCL 0.4 MG CAP.SR.24H PO SCH (20:32)
[2017-08-03] MEDS: ACETAMINOPHEN 325 MG TABLET PO PRN (23:15)
[2017-08-04] MEDS: PIPERACILLIN/TAZOBACTAM/D5W 50 ML IV SCH ×3 (02:08→15:07)
--- NOTE | 2017-08-04 05:43 | NUR ---
PT ABLE TO SLEEP 4-5 HRS WITHOUT DIFFICULTY. V/S ARE WNL. AIR MATTRESS WAS ORDERED. PT REPOSITIONED WITH HOB MAINTAINED 30 DEGREES. NO REACTION TO RECENT IV ATB ZOSYN. WILL CONTINUE TO MONITOR. SEIZURE PRECAUTIONS ENFORCED.
[2017-08-04 06:15] LABS: BASOPHILS % (AUTO) 0.3 % (0.0-2.0); EOSINOPHILS # (AUTO) 0.4 K/uL (0.0-0.7); EOSINOPHILS % (AUTO) 4.5 % (0.0-7.0); HEMATOCRIT 37.1 % (36.7-47.1); HEMOGLOBIN 12.1 g/dL (12.5-16.3); LYMPHOCYTES # (AUTO) 0.8 K/uL (20.0-40.0); LYMPHOCYTES % (AUTO) 10.4 % (20.5-51.5); MEAN CORPUSCULAR HEMOGLOBIN 26.8 uug (23.8-33.4); MEAN CORPUSCULAR HGB CONC 33 g/dL (32.5-36.3); MEAN CORPUSCULAR VOLUME 82.4 fL (73.0-96.2); MONOCYTES # (AUTO) 0.4 K/uL (2.0-10.0); MONOCYTES % (AUTO) 5.5 % (0.0-11.0); NEUTROPHILS # (AUTO) 6.4 K/uL (1.8-8.9); NEUTROPHILS % (AUTO) 79.3 % (38.5-71.5); PLATELET COUNT (AUTO) 165 K/uL (152-348); RED BLOOD CELL COUNT(AUTO) 4.51 MIL/uL (4.06-5.63)
[2017-08-04 06:25] VITALS: BP 110/78
[2017-08-04 06:29] LABS: MAGNESIUM 2.2 mg/dL (1.8-2.4); PHOSPHOROUS 3.8 mg/dL (2.5-4.9); POTASSIUM 3.5 mmol/L (3.5-5.1)
[2017-08-04] MEDS: BLOOD SUGAR DIAGNOSTIC 1 EACH STRIP VI SCH ×3 (06:32→17:02)
[2017-08-04] MEDS: INSULIN REGULAR, HUMAN 300 UNIT/3 ML VIAL SQ PRN ×3 (07:35→17:14)
[2017-08-04] MEDS: METFORMIN HCL 500 MG TABLET PO SCH (08:02)
[2017-08-04] MEDS: FERROUS SULFATE 325 MG TABEC PO SCH (08:02)
[2017-08-04] MEDS: MULTIVITAMINS,THERAPEUTIC TABLET PO SCH (08:02)
[2017-08-04] MEDS: FUROSEMIDE 20 MG TABLET PO SCH ×2 (08:02→17:05)
[2017-08-04] MEDS: PANTOPRAZOLE SODIUM 40 MG TABLET.DR PO SCH ×2 (08:02→17:05)
[2017-08-04] MEDS: FINASTERIDE 5 MG TABLET PO SCH (08:02)
[2017-08-04] MEDS: BACLOFEN 10 MG TABLET PO SCH (08:02)
[2017-08-04] MEDS: LEVETIRACETAM 500 MG TABLET PO SCH (08:02)
[2017-08-04] MEDS: MEMANTINE HCL 10 MG TABLET PO SCH ×2 (08:02→17:05)
[2017-08-04] MEDS: ESCITALOPRAM OXALATE 10 MG TABLET PO SCH (08:02)
[2017-08-04] MEDS: OXCARBAZEPINE 300 MG TABLET PO SCH (08:02)
[2017-08-04] MEDS: PROTEIN SUPPLEMENT (PROSTAT) 30 ML LIQUID PO SCH ×2 (08:03→17:05)
[2017-08-04] MEDS ORDERED: PIPE3.379 IV (08:38)
[2017-08-04 11:00] VITALS: BP 116/65
[2017-08-04] MEDS: ACETAMINOPHEN 325 MG TABLET PO PRN (13:55)
[2017-08-04 17:28] VITALS: BP 133/72
--- NOTE | 2017-08-04 17:47 | NUR ---
D/C ORDERS RECEIVED NOTED AND CARRIED OUT,D/C INSTRUCTION AND EDUCATION AND RN REPORT GIVEN TO THE SKILLED NURSING PT LEFT THE FACILITY VIA AMBULANCES WITH [facility] FOR I/V ANTIBIOTIC IN STABLE CONDITION.
== END 2017-08-04 18:15 | DRG 871 ==
LOC: ER 17:20 → MED 20:12
PROVIDERS: ADMIT Internal Medicine Nephrology; ATTEND Internal Medicine Nephrology
DX: A41.9 Sepsis, unspecified organism (principal); J18.9 Pneumonia, unspecified organism; G92 Toxic encephalopathy; J96.00 Acute respiratory failure, unspecified whether with hypoxia or hypercapnia; N39.0 Urinary tract infection, site not specified; E87.0 Hyperosmolality and hypernatremia; G80.9 Cerebral palsy, unspecified; G40.909 Epilepsy, unspecified, not intractable, without status epilepticus; F03.90 Unspecified dementia, unspecified severity, without behavioral disturbance, psychotic disturbance, mood disturbance, and anxiety; Z87.440 Personal history of urinary (tract) infections; N31.9 Neuromuscular dysfunction of bladder, unspecified; F32.9 Major depressive disorder, single episode, unspecified; R73.9 Hyperglycemia, unspecified; I50.9 Heart failure, unspecified; K29.70 Gastritis, unspecified, without bleeding
CPT/HCPCS: 36415; 70030-TC; 71045; 83605; 83735; 84100; 84156; 84300; 85025; 85730; 87040; 87086; 93005; A4663; J0713; J1580; J1815; J2543; J3370; J7030; J7050; J7060